=== PATIENT | female | born 1950 | race Caucasian/White ===

== ENCOUNTER → 2021-03-09 09:55 | Outpatient (BNVA) | payer MEDICARE, OTHER, SELFPAY | PROVIDERS: Visit Provider Nurse Practitioner Family | DX: Z20.822 Contact with and (suspected) exposure to COVID-19 (principal) | CPT/HCPCS: 87426; 87635 ==

== ENCOUNTER 2021-03-12 09:57 | Outpatient (CLI) | payer MEDICARE, OTHER, SELFPAY ==
[2021-03-12 10:17] VITALS: BP 163/69; PULSE 60; RESP 20; TEMP 36.8; O2SAT 95; BMI 41.1
[2021-03-12 12:00] VITALS: BP 182/90; PULSE 53; RESP 18; O2SAT 92
[2021-03-12 12:12] VITALS: PULSE 62; RESP 18; TEMP 37
--- NOTE | 2021-03-19 18:43 | PC.SOCIAL ---
10-1, 1500 antibody infusion follow up call: symptoms prior to infusion: fever, chills, cough, cold like symptoms patient reports she is better, still has no appetite but feels she is on the uphill swing of things, cough is better, and no fever.
== END 2021-03-12 09:58 | disposition home or self-care (01) ==
LOC: OPS 10:01
PROVIDERS: Visit Provider Nurse Practitioner Family
DX: U07.1 COVID-19 (principal)
CPT/HCPCS: 96365

== ENCOUNTER 2021-12-28 10:09 | Emergency (ER) | payer MEDICARE, OTHER, SELFPAY ==
[2021-12-28] VITALS (21 sets, daily range): BP systolic 194–269; BP diastolic 88–115; PULSE 56; RESP 20; O2SAT 91–98
--- NOTE | 2021-12-28 11:35 | ED_ITS ---
HPI - Abdominal Pain General: Chief Complaint: Abdominal Pain Stated Complaint: right side/back pain Time Seen by Provider: 12/28/21 11:35 History of Present Illness: Ms. Cameron is a 71-year-old lady without significant past medical history presents to the emergency department due to right flank pain. She notes intermittent history of pain starting without specific known provoking factor approximately 1 week ago. Initially it was just twinges however since this morning it has been constant. She describes severe ache in the right flank and back region. She has associated nausea and vomiting today. She did notice blood in urine about a week ago however it was only trace and has not recurred, she does not continue to have urinary symptoms. Overall course has persisted. She does report similar feeling to kidney stone a number of years ago. No other specific changes in health, exacerbating, or alleviating factors identified. Onset (ago): day(s) Pain Consistency: intermittent Location: R flank Severity: severe Quality: aching Radiation: RUQ Associated Symptoms: Reports hematuria, nausea and vomiting Review of Systems General: Reports: 10 or more systems reviewed and unremarkable except in HPI and below GI: Reports: nausea and vomiting : Reports: hematuria PFSH ED PFSH: Medical History History of nephrolithiasis Surgical History History of appendectomy History of oophorectomy Family History Mother , AT AGE 87 Lung disease Rheumatoid arthritis Cancer LUNG Father , AT AGE 43 Alcohol abuse Heart attack Social History Smoking and tobacco status: never smoked Alcohol intake: never Marital status: Current occupational status: employed Current occupation: [employer] History of recent travel: No Physical Exam Const: COMMON NORMALS: alert GENERAL APPEARANCE: cooperative, well developed and in distress (Uncomfortable appearing due to pain) HENMT: COMMON NORMALS: normocephalic and atraumatic HEAD & SCALP: normocephalic and atraumatic THROAT: posterior oropharynx normal Eye: COMMON NORMALS: conjunctivae normal CONJUNCTIVA: Yes conjunctivae normal SCLERA: sclerae normal Neck/C-Spine: COMMON NORMALS: supple GENERAL: Yes trachea midline Resp: COMMON NORMALS: normal respiratory effort EFFORT & INSPECTION: Yes able to speak in complete sentences Cardio: COMMON NORMALS: regular rate and regular rhythm RATE: regular rate RHYTHM: regular rhythm GI: COMMON NORMALS: Soft to palpation PALPATION: Yes Soft to palpation, Yes Tenderness to palpation present (GI) Details: RUQ and other (Right flank), No Guarding due to palpation present (GI), No Rigid due to palpation and No Rebound tenderness present PERCUSSION: normal to percussion Extremity: GENERAL: Yes normal exam except as noted and No edema Neuro: COMMON NORMALS: moves all extremities SENSORIUM/ORIENTATION: Yes alert and No Orientation impaired Psych: COMMON NORMALS: mental status grossly normal and Normal thought process present THOUGHT PROCESS: Normal thought process present Course ED course: - Patient was seen and evaluated by me at bedside - Patient placed on cardiac monitors, IV access obtained - Initial evaluation notable for Exam as above - Labs and xrays personally interpreted by me - Analgesia and antiemetic given - Labs notable for Metabolic panel without acute electrolyte derangement. leukocytosis, normal hemoglobin. Urinalysis with hematuria. Squamous epithelial contamination present with 5-10 white cells & nitrate positive. - Imaging notable for 5 mm calcification in the proximal ureter likely explain patient's symptoms with moderate right hydroureteronephrosis. - Upon serial reexamination after treatment the patient was improved. - Discussed with urology recommended outpatient follow-up with strict return cautions. Plan to treat WBCs in urine given nitrate positive to err on the side of caution. Patient is nontoxic and not septic. - Based on patient history, evaluation, and testing as interpreted the most likely cause of the patient's condition is kidney stone - The results of ED evaluation were discussed with the patient including prescriptions and/or symptomatic cares (if applicable) including appropriate and responsible use, followup plan, and return precautions. The patient verbalized understanding and felt safe for discharge. - Patient discharged in satisfactory condition. Note: Click bubbles or prepopulated hale in note writing are used for assistance with data collection and billing and are inherently more limited than narrative and other text portions of this note. Please use narrative for additional clinical history and defer to narrative/free test for any case of contradictory information. If information appears in only free text or click bubble it should be considered present or absent as reported. Please contact note commercial lines underwriter for clarifications of clinical information or contradictory information. MDM is a brief summary, contradictory or erroneous seeming information should be clarified and full note should be reviewed. Vital Signs: Vital signs: Vital Signs Pulse Rate 56 L 12/28/21 10:45 Respiratory Rate 20 H 12/28/21 10:45 Blood Pressure 194/88 12/28/21 14:15 Pulse Oximetry 93 12/28/21 14:10 MDM - Abdominal Pain Medical Decision Making 71-year-old female presenting with abdominal pain found to have proximal ureter stone. Patient is nontoxic in appearance without evidence of sepsis. She was improved with treatment of symptoms. Strict return precautions given. Satisfactory for outpatient follow-up with urology. Medical Records I reviewed the patient's medical records. Lab Data I reviewed the patient's lab results. : 12/28/21 11:45 12/28/21 11:45 Labs/Radiology: Radiology Impressions Abdomen/Pelvis CT 12/28/21 11:40 IMPRESSION: 1. Moderate RIGHT hydroureteronephrosis secondary to a 5 mm calcification in the proximal ureter. 2. Additional bilateral nonobstructing renal calculi. 3. Prior appendectomy. 4. Long-term stability lobulated RIGHT adnexal cystic mass which is probably related to the ovary. 5. Prior LEFT oophorectomy. Laboratory Results WBC 14.0 10^3/uL (4.0-10.0) H 12/28/21 11:45 RBC 5.05 10^6/uL (4.1-5.3) 12/28/21 11:45 Hgb 14.6 g/dL (11.5-15.3) 12/28/21 11:45 Hct 44.4 % (37.0-47.0) 12/28/21 11:45 MCV 87.9 fl (81-99) 12/28/21 11:45 MCH 28.9 pg (28.0-34.0) 12/28/21 11:45 MCHC 32.9 g/dL (30.0-36.0) 12/28/21 11:45 RDW 12.9 % (12.1-15.1) 12/28/21 11:45 Plt Count 321 10^3/cmm (130-400) 12/28/21 11:45 MPV 11.4 fL (7.4-10.4) H 12/28/21 11:45 Neut % (Auto) 83.3 % 12/28/21 11:45 Lymph % (Auto) 13.1 % 12/28/21 11:45 [place] % (Auto) 2.1 % 12/28/21 11:45 Eos % (Auto) 0.2 % 12/28/21 11:45 Baso % (Auto) 0.9 % 12/28/21 11:45 Neut # (Auto) 11.66 10^3/uL (1.8-7.7) H 12/28/21 11:45 Lymph # (Auto) 1.8 10^3/uL (0.8-4.8) 12/28/21 11:45 [place] # (Auto) 0.3 10^3/uL (0.2-0.9) 12/28/21 11:45 Eos # (Auto) 0.0 10^3/uL (0.0-0.8) 12/28/21 11:45 Baso # (Auto) 0.1 10^3/uL (0.0-0.1) 12/28/21 11:45 Nucleated RBC % (auto) 0 % 12/28/21 11:45 Nucleated RBCs # 0.0 /100WBC 12/28/21 11:45 Sodium 140 mmol/L (136-145) 12/28/21 11:45 Potassium 3.8 mmol/L (3.5-5.1) 12/28/21 11:45 Chloride 100 mmol/L (98-107) 12/28/21 11:45 Carbon Dioxide 27 mmol/L (22-29) 12/28/21 11:45 Anion Gap 16.8 (5-19) 12/28/21 11:45 BUN 18 mg/dL (8-23) 12/28/21 11:45 Creatinine 0.6 mg/dL (0.5-0.9) 12/28/21 11:45 GFR Calculation 98.8 mL/min (90-130) 12/28/21 11:45 Glucose 173 mg/dL (65-115) H 12/28/21 11:45 Calculated Osmolality 296 mOsm/kg (285-295) H 12/28/21 11:45 Calcium 9.6 mg/dL (8.5-10.5) 12/28/21 11:45 Total Bilirubin 0.5 mg/dL (0.15-1.2) 12/28/21 11:45 AST 12 U/L (0-32) 12/28/21 11:45 ALT 11 U/L (0-33) 12/28/21 11:45 Alkaline Phosphatase 109 IU/L (35-105) H 12/28/21 11:45 Total Protein 8.4 g/dL (6.6-8.7) 12/28/21 11:45 Albumin 4.7 g/dL (3.5-5.2) 12/28/21 11:45 Globulin 3.7 g/dL (1.3-4.6) 12/28/21 11:45 Lipase 17 U/L (13-60) 12/28/21 11:45 Urine Color Leah (Yellow) 12/28/21 12:04 Urine Appearance Hazy (CLEAR) A 12/28/21 12:04 Urine pH 5 (5-7) 12/28/21 12:04 Ur Specific [place] 1.025 (1.005-1.030) 12/28/21 12:04 Urine Protein Neg (Negative) 12/28/21 12:04 Urine Glucose (UA) Norm (Normal) 12/28/21 12:04 Urine Ketones 1+ (Negative) H 12/28/21 12:04 Urine Blood 3+ (Negative) H 12/28/21 12:04 Urine Nitrate Positive (Negative) H 12/28/21 12:04 Urine Bilirubin Neg (Negative) 12/28/21 12:04 Urine Urobilinogen Norm mg/dL (Negative) 12/28/21 12:04 Ur Leukocyte Esterase 1+ (Negative) H 12/28/21 12:04 Urine RBC Too numerous to cnt /hpf (0-2) H 12/28/21 12:04 Urine WBC 5-10 /hpf (0-5) H 12/28/21 12:04 Ur Squamous Epith Cells 5-10 /hpf (0-5) H 12/28/21 12:04 Amorphous Sediment Not Reportable 12/28/21 12:04 Urine Bacteria 3+ /hpf (NONE) H 12/28/21 12:04 Discharge Plan Discharge Patient Disposition: Home Clinical Impression: Ureterolithiasis, Leukocytosis, Pelvic cyst, Bacteriuria Condition: Stable Prescriptions: New oxycodone 5 mg tablet 5 mg PO Q4H PRN (Reason: pain) Qty: 20 0RF ondansetron 4 mg tablet,disintegrating 4 mg PO Q8H PRN (Reason: nausea and vomiting) Qty: 15 0RF Cipro 500 mg tablet 500 mg PO BID Qty: 20 0RF Flomax 0.4 mg capsule 0.4 mg PO DAILY Qty: 14 0RF No Action aspirin 325 mg Tablet 325 mg PO DAILY PRN (Reason: Pain) 0RF ibuprofen 200 mg Tablet 400 mg PO Q6H PRN (Reason: Pain) 0RF Discharge Orders: Discharge ED (Routine); Ordered 12/28/21 Ordered By: Vasile Escalante Discharge Diet: Usual diet Discharge Activity: Increase activity as tolerated Patient Instructions: Urinary Tract Infection in Women (ED), How to Strain Your Urine (ED), Ureteral Stones (ED), Opioid Safety Activity Restrictions/Additional Instructions: Thank you for visiting the emergency department. You were seen and evaluated for abdominal pain. You are found to have a kidney stone which likely explains her symptoms. Additionally you have some bacteria in your urine. I will prescribe oxycodone for pain control as well as Zofran for nausea. I will prescribe Flomax as this has been shown to help increase the likelihood of stone passage without intervention. I will prescribe antibiotics given the tamika teria in your urine. I will message case management and you should be contacted for follow-up with Dr. Choudhary. Please follow-up with your primary care provider. Your blood pressure was noted to be elevated, I recommend keeping track of blood pressure and keeping a log at home to follow-up with your primary care provider regarding. Please return to the emergency department for uncontrolled pain, inability to tolerate p.o. intake, fevers, overall worsening, or anything else that you are concerned about a feel needs emergency department evaluation. Stand Alone Forms: Work/School Release Coding Level of Care Code ED Gill Tender for Bill Fwmanasa Exam Comprehensive
--- NOTE | 2021-12-28 11:40 | CT_ITS ---
WS: [id number] CT ABDOMEN AND PELVIS NONCONTRAST HISTORY: R flank pain, hematuria TECHNIQUE: Imaging performed through the abdomen and pelvis. Coronal and sagittal reformats are submi tted. All CT scans at [facility] use at least one of these dose optimization techniques: auto mated exposure control; mA and/or kV adjustment per patient size (includes targeted exams where dose is matched to clinical indication); or iterative reconstruction. DLP: 1201.56 mGy.cm COMPARISON: 11/01/2013 Lower thorax: Motion artifact at the lung bases. Mild cardiomegaly. Small hiatal hernia. Liver: Moderate hepatic enlargement with diffuse hepatic steatosis. No bile duct dilatation. Benign c alcification near the falciform ligament. Gallbladder: Normal gallbladder. Pancreas: Normal size and attenuation. Normal pancreatic duct. No pancreatitis or mass. Spleen: Normal. Adjacent splenule. Adrenal glands: Normal. No mass. Right kidney: Moderate perinephric stranding with mild renal enlargement. Moderate hydronephrosis sec ondary to a ureteral calcification measuring 5 mm in the proximal ureter near the L4 vertebral body. The ureter distally is normal caliber to the bladder. Additional several nonobstructing calcification s measuring 2 to 3 mm. Left kidney: Nonobstructing 2 to 3 mm calcifications. Aorta: Normal abdominal aorta, no aneurysm or atherosclerosis. No free fluid, intraperitoneal air or significant lymphadenopathy. GI tract: Normal distended stomach. No small bowel obstruction. The appendix is been removed. Abdominal wall: Marked thinning of the abdominal wall musculature. There is a small central umbilical hernia containing fat only. Marked atrophy of the RIGHT rectus abdominis muscle. Pelvis: Well-distended urinary bladder. Prior LEFT oophorectomy. Uterus is midline. Cystic mass in th e RIGHT adnexa is reidentified. Similar in appearance to 11/01/2013 with only minimal increase in size . Several lobulated cyst with the largest measuring 3.7 x 3.8 cm. Very stable since 2013. Osseous structures: Unremarkable. CT/CT kidney stone [id number] IMPRESSION: 1. Moderate RIGHT hydroureteronephrosis secondary to a 5 mm calcification in t he proximal ureter. 2. Additional bilateral nonobstructing renal calculi. 3. Prior appendectomy. 4. Long-term stability lobulated RIGHT adnexal cystic mass which is probably r elated to the ovary. 5. Prior LEFT oophorectomy.
[2021-12-28 11:50] LABS: Basophils # 0.1 10^3/uL (0.0-0.1); Basophils % 0.9 %; Eosinophils % 0.2 %; Hematocrit 44.4 % (37.0-47.0); Hemoglobin 14.6 g/dL (11.5-15.3); Lymphocytes # 1.8 10^3/uL (0.8-4.8); Lymphocytes % 13.1 %; Mean Corpuscular HGB Conc 32.9 g/dL (30.0-36.0); Mean Corpuscular Hemoglobin 28.9 pg (28.0-34.0); Mean Corpuscular Volume 87.9 fl (81-99); Mean Platelet Volume 11.4 fL (7.4-10.4); Monocytes # 0.3 10^3/uL (0.2-0.9); Monocytes % 2.1 %; Neutrophils # 11.66 10^3/uL (1.8-7.7); Neutrophils % 83.3 %; Nucleated Red Blood Cells % 0 %; Platelet Count 321 10^3/cmm (130-400); Red Blood Count 5.05 10^6/uL (4.1-5.3); Red Cell Distribution Width 12.9 % (12.1-15.1)
[2021-12-28] MEDS: acetaminophen 1,000 MG/100 ML PIGGYBACK 400 MG IV (11:56)
[2021-12-28] MEDS: ondansetron 2 mg/ML SDV 2 mL 4 MG IVP ×2 (11:58→14:08)
[2021-12-28 12:17] LABS: Alanine Aminotransferase 11 U/L (0-33); Albumin Level 4.7 g/dL (3.5-5.2); Alkaline Phosphatase 109 IU/L (35-105); Anion Gap 16.8 (5-19); Aspartate Amino Transferase 12 U/L (0-32); Blood Urea Nitrogen 18 mg/dL (8-23); Calcium 9.6 mg/dL (8.5-10.5); Carbon Dioxide 27 mmol/L (22-29); Chloride 100 mmol/L (98-107); Globulin 3.7 g/dL (1.3-4.6); Glomerular Filtration Rate 98.8 mL/min (90-130); Glucose 173 mg/dL (65-115); Lipase 17 U/L (13-60); Osmolality Calculated 296 mOsm/kg (285-295); Potassium 3.8 mmol/L (3.5-5.1); Sodium 140 mmol/L (136-145); Total Bilirubin 0.5 mg/dL (0.15-1.2); Total Protein 8.4 g/dL (6.6-8.7)
[2021-12-28 12:26] LABS: Add Urine Microscopic? YES; Bilirubin Urine Neg (Negative); Blood Urine 3+ (Negative); Glucose Urine UA Norm (Normal); Ketones Urine 1+ (Negative); Leukocyte Esterase Urine 1+ (Negative); Nitrate Urine Positive (Negative); Protein Urine Neg (Negative); Specific Gravity, Urine 1.025 (1.005-1.030); Urine Appearance Hazy (CLEAR); Urine Color Amber (Yellow); Urobilinogen Urine Norm (Negative); pH Urine 5 (5-7)
[2021-12-28 12:27] LABS: Add Urine Culture? Yes; Bacteria Urine 3+ /hpf; RBC Urine TOO NUMEROUS TO CNT /hpf (0-2)
--- NOTE | 2021-12-28 12:46 | PC.NURSE ---
NOTIFIED DR. WORLEY OF BP OF 269/105 HE VERBALIZED UNDERSTANDING AND STATED HE WOULD HAVE ORDERS TO FOLLOW.
[2021-12-28] MEDS: tamsulosin 0.4 mg Capsule PO (12:57)
[2021-12-28] MEDS: ketorolac 30 mg/mL INJ 15 MG IVP (12:57)
[2021-12-28] MEDS: hyDRALAzine 20 mg/mL INJ 1 mL 10 MG IVP (12:58)
--- NOTE | 2021-12-28 14:15 | PC.NURSE ---
PT BP IS 194/[address] WORLEY VERBALIZED UNDERSTANDING VO TO CONTINUE WITH DC.
--- NOTE | 2021-12-31 09:13 | DCPLANNER ---
Addendum entered by Violetta Wilson 01/08/22 15:05: Patient had a follow up appointment scheduled for 01.01.[address] Choudhary at urology - patient did attend appointment. Original Note: manager marketing sales had message to schedule a follow up appointment for patient with urology. manager marketing sales sent patients information to the front office staff at urology. Patients information will be printed and reviewed. Clinic will call patient with appointment information.
== END 2021-12-28 14:21 | disposition home or self-care (01) ==
PROVIDERS: Emergency Provider Emergency Medicine
DX: N20.1 Calculus of ureter (principal); D72.829 Elevated white blood cell count, unspecified; N94.89 Other specified conditions associated with female genital organs and menstrual cycle; R82.71 Bacteriuria; Z79.82 Long term (current) use of aspirin; Z87.442 Personal history of urinary calculi
CPT/HCPCS: 74176; 80053; 81001; 83690; 85025; 87077; 87086; 87186; 96365; 96375; 96376; 99285; J0360; J1885; J2405

== ENCOUNTER 2022-01-01 12:59 | Outpatient (CLI) | payer MEDICARE, OTHER, SELFPAY ==
--- NOTE | 2022-01-01 13:00 | XR_ITS ---
WS: [id number] XR KUB [id number] REASON FOR EXAM: STONES FINDINGS: 3 mm calculus overlying the mid to lower portion of the right kidney congruent with the CT scan of . The small calculi in the left kidney on the previous CT scan are not readily identified on t he plain films. The mid right ureteral calculus demonstrated on the previous CT is not identified in the abdomen or p juno on the current exam. No other significant abdominal or pelvic findings. XR/XR KUB [id number] IMPRESSION: Right renal calculus. No other urinary tract calculi are identified.
== END 2022-01-01 13:00 | disposition home or self-care (01) ==
PROVIDERS: Visit Provider Urology
DX: N20.1 Calculus of ureter (principal)
CPT/HCPCS: G0463; 74018; 99203

== ENCOUNTER 2022-01-09 09:54 | Outpatient (CLI) | payer MEDICARE, OTHER, SELFPAY ==
--- NOTE | 2022-01-09 09:45 | XR_ITS ---
WS: [id number] Exam: XR KUB [id number] Date/Time of Exam: 01/09/2022 10:23 AM Reason For Exam: URETEROLITHIASIS Comparison 01/01/2022. No bowel obstruction or free air. No sign of organ enlargement. Surgical clips in the right lower tesha drant. There may be small calcifications superimposing the right kidney. Degenerative changes and spo ndylosis of the lumbar spine. XR/XR KUB [id number] IMPRESSION: 1. No acute abdominal finding. 2. There may be tiny calcifications superimposing the right kidney versus debri s in the large bowel.
== END 2022-01-09 09:55 | disposition home or self-care (01) ==
PROVIDERS: Visit Provider Urology
DX: N20.1 Calculus of ureter (principal); N30.00 Acute cystitis without hematuria
CPT/HCPCS: 74018; 81003; 99213

== ENCOUNTER 2022-01-22 09:54 | Outpatient (CLI) | payer MEDICARE, OTHER, SELFPAY ==
--- NOTE | 2022-01-22 10:11 | XRR_ITS ---
PROCEDURE INFORMATION: Exam: XR Abdomen Exam date and time: 01/22/2022 10:12 AM Age: 72 years old Clinical indication: Condition or disease; Kidney or ureter condition; Calculus (stone) in kidney; Prior surgery; Surgery type: Ovary appendectomy; Patient HX: Kidney stone and infected kidney on RT side. Follow up; Additional info: Ureterolithiasis, chadb @ [facility] on 01/22/22 @ 9:45. Appt to follow TECHNIQUE: Imaging protocol: Radiologic exam of the abdomen. Views: Frontal supine view of the abdomen. 1 View. COMPARISON: CR XR KUB [id number] 01/09/2022 10:22 AM FINDINGS: Gastrointestinal tract: There again may be punctate calcific densities projecting over the right kidney versus material within the colon. Bones/joints: Unremarkable. Soft tissues: Surgical material in the right lower quadrant. XR/XR KUB [id number] IMPRESSION: Query nonobstructing tiny right renal calculi versus densities in the colon, similar in appearance to prior.
== END 2022-01-22 09:55 | disposition home or self-care (01) ==
LOC: RAD 09:57
PROVIDERS: Visit Provider Urology
DX: N20.1 Calculus of ureter (principal); N30.00 Acute cystitis without hematuria
CPT/HCPCS: 74018; 81003; 99213

== ENCOUNTER 2022-07-30 09:00 | Outpatient (CLI) | payer MEDICARE, OTHER, SELFPAY ==
--- NOTE | 2022-07-30 09:12 | XRR_ITS ---
PROCEDURE INFORMATION: Exam: XR Abdomen Exam date and time: 07/30/2022 9:16 AM Age: 72 years old Clinical indication: Condition or disease; Kidney or ureter condition; Calculus (stone) in kidney; Prior surgery; Surgery type: Ovary, appy; Additional info: Renal stone, kub @ [facility] 07/30/22 @ 0900 appointment to follow TECHNIQUE: Imaging protocol: Radiologic exam of the abdomen. Views: Frontal supine view of the abdomen. 1 View. COMPARISON: CR XR KUB [id number] 01/22/2022 10:12 AM FINDINGS: Gastrointestinal tract: Bowel gas pattern is unremarkable. No sign of obstruction. Organs: No visible renal or ureteral stones. Bones/joints: There is moderate degenerative disease in the lumbar spine. XR/XR KUB [id number] IMPRESSION: No visible renal or ureteral stones.
== END 2022-07-30 09:01 | disposition home or self-care (01) ==
PROVIDERS: Visit Provider Urology
DX: N20.1 Calculus of ureter (principal)
CPT/HCPCS: 74018; 81003; 99213

== ENCOUNTER 2022-10-14 11:50 | Inpatient (IN) | payer MEDICARE, OTHER, SELFPAY ==
[2022-10-14] VITALS (21 sets, daily range): BP systolic 150–182; BP diastolic 76–123; PULSE 79–148; RESP 11–27; TEMP 36.3–36.9; O2SAT 91–97; BMI 44.8
--- NOTE | 2022-10-14 12:09 | ED_ITS ---
HPI - Arrhythmia/Palpitations General: Chief Complaint: Arrhythmia/Palpitations Stated Complaint: AFIB Time Seen by Provider: 10/14/22 12:08 Source: patient Mode of arrival: ambulatory History of Present Illness: 72-year-old female presents emergency room complaining of rapid heart rate intermittently with increasing leg swelling easy fatigue and shortness of breath with exertion for the last approximately 10 days has not been constant but intermittently she has very rapid heart rate reports daily. She denies vomiting or diarrhea but has been very nauseous. No known coronary disease. MD complaint: rapid heart beat and heart racing Onset (ago): day(s) (10) Duration: intermittent Severity: moderate Associated symptoms: Deny anxiety, cough, diaphoresis, muscle cramps, nausea, paresthesias, pre-syncope, sense of impending doom, short of breath, syncope or vomiting Review of Systems Const: Denies: fever(s), chills, fatigue, malaise or diaphoresis ENMT: Denies: throat pain, ear or mastoid pain, nasal discharge or nasal congestion Card: Reports: palpitations, irregular heart rhythm, edema and swelling of feet/ankles; Denies: chest pain, syncope or pre-syncope Resp: Reports: dyspnea; Denies: productive cough or non-productive cough GI: Denies: abdominal pain, nausea or vomiting : Denies: flank pain, difficulty voiding, dysuria, urinary frequency or urinary urgency Musc: Denies: muscle cramps Skin/Breast: Denies: rash or pruritus Psych: Denies: anxiety PFSH ED PFSH: Medical History History of nephrolithiasis Urolithiasis Surgical History History of appendectomy History of oophorectomy Family History Mother , AT AGE 87 Lung disease Rheumatoid arthritis Cancer LUNG Father , AT AGE 43 Alcohol abuse Heart attack Social History Smoking and tobacco status: never smoked Alcohol intake: never Marital status: Current occupational status: employed Current occupation: [employer] Physical Exam Const: GENERAL APPEARANCE: cooperative and comfortable ORIENTATION/CONSCIOUSNESS: Yes awake, Yes oriented to person, Yes oriented to place and Yes oriented to time HENMT: COMMON NORMALS: normocephalic, atraumatic and hearing grossly normal bilaterally HEAD & SCALP: normocephalic and atraumatic Resp: COMMON NORMALS: normal respiratory effort, No retractions, No use of accessory muscles and clear to auscultation bilaterally AUSCULTATION: clear to auscultation bilaterally Cardio: RATE: tachycardic RHYTHM: abnormal rhythm irregularly irregular GI: COMMON NORMALS: Soft to palpation and No hepatosplenomegaly present AUSCULTATION: Yes normoactive bowel sounds PALPATION: Yes Soft to palpation, No Tenderness to palpation present (GI), No Guarding due to palpation present (GI) and Yes No hepatosplenomegaly present Extremity: COMMON NORMALS: normal to inspection, capillary refill normal, no clubbing, cyanosis or edema, no calf tenderness and no pedal edema Neuro: SENSORIUM/ORIENTATION: Yes oriented to person, Yes oriented to place and Yes oriented to time Skin: COMMON NORMALS: no rashes or lesions noted GENERAL SKIN EXAM: no rashes or lesions noted Course Vital Signs: Vital signs: Vital Signs Temperature 98.1 F 10/14/22 11:58 Pulse Rate 148 H 10/14/22 11:58 Respiratory Rate 24 H 10/14/22 11:58 Blood Pressure 166/118 10/14/22 11:58 Pulse Oximetry 95 10/14/22 11:58 Oxygen Delivery Me thod Room Air 10/14/22 11:58 MDM - Arrhythmia/Palpitations Medical Decision Making New onset atrial fibrillation with rapid ventricular response with congestive heart failure. We will admit discussed the hospitalist orders written discussed with the patient as well. Chest x-ray read as mild pneumonia prophylactic antibiotic started White count was slightly elevated. Medical Records I reviewed the patient's medical records. Lab Data I reviewed the patient's lab results. 10/14/22 13:15 10/14/22 13:15 Radiology Impressions Chest X-Ray 10/14/22 12:10 IMPRESSION: Cardiomegaly with faint left lower lobe infiltrate suspicious for pneumonia. Laboratory Results WBC 11.0 10^3/uL (4.0-10.0) H 10/14/22 13:15 RBC 4.79 10^6/uL (4.1-5.3) 10/14/22 13:15 Hgb 13.9 g/dL (11.5-15.3) 10/14/22 13:15 Hct 44.2 % (37.0-47.0) 10/14/22 13:15 MCV 92.3 fl (81-99) 10/14/22 13:15 MCH 29.0 pg (28.0-34.0) 10/14/22 13:15 MCHC 31.4 g/dL (30.0-36.0) 10/14/22 13:15 RDW 13.9 % (12.1-15.1) 10/14/22 13:15 Plt Count 296 10^3/cmm (130-400) 10/14/22 13:15 MPV 11.9 fL (7.4-10.4) H 10/14/22 13:15 Neut % (Auto) 77.9 % 10/14/22 13:15 Lymph % (Auto) 16.4 % 10/14/22 13:15 [place] % (Auto) 3.4 % 10/14/22 13:15 Eos % (Auto) 1.1 % 10/14/22 13:15 Baso % (Auto) 0.9 % 10/14/22 13:15 Neut # (Auto) 8.58 10^3/uL (1.8-7.7) H 10/14/22 13:15 Lymph # (Auto) 1.8 10^3/uL (0.8-4.8) 10/14/22 13:15 [place] # (Auto) 0.4 10^3/uL (0.2-0.9) 10/14/22 13:15 Eos # (Auto) 0.1 10^3/uL (0.0-0.8) 10/14/22 13:15 Baso # (Auto) 0.1 10^3/uL (0.0-0.1) 10/14/22 13:15 Nucleated RBC % (auto) 0 % 10/14/22 13:15 Nucleated RBCs # 0.0 /100WBC 10/14/22 13:15 Sodium 138 mmol/L (136-145) 10/14/22 13:15 Potassium 4.3 mmol/L (3.5-5.1) 10/14/22 13:15 Chloride 101 mmol/L (98-107) 10/14/22 13:15 Carbon Dioxide 25 mmol/L (22-29) 10/14/22 13:15 Anion Gap 16.3 (5-19) 10/14/22 13:15 BUN 10 mg/dL (8-23) 10/14/22 13:15 Creatinine 0.5 mg/dL (0.5-0.9) 10/14/22 13:15 GFR Calculation Not Reportable 10/14/22 13:15 Glucose 122 mg/dL (65-115) H 10/14/22 13:15 Calculated Osmolality 286 mOsm/kg (285-295) 10/14/22 13:15 Calcium 9.1 mg/dL (8.5-10.5) 10/14/22 13:15 Total Bilirubin 0.9 mg/dL (0.15-1.2) 10/14/22 13:15 AST 12 U/L (0-32) 10/14/22 13:15 ALT 13 U/L (0-33) 10/14/22 13:15 Alkaline Phosphatase 92 U/L (35-105) 10/14/22 13:15 Troponin T Baseline 8 ng/L (0-10) 10/14/22 13:15 Troponin T 120 Minute 8.26 ng/L (0-10) 10/14/22 15:20 NT-Pro-B Natriuret Pep 1272 pg/mL (0-125) H 10/14/22 13:15 Total Protein 7.5 g/dL (6.6-8.7) 10/14/22 13:15 Albumin 4.3 g/dL (3.5-5.2) 10/14/22 13:15 Globulin 3.2 g/dL (1.3-4.6) 10/14/22 13:15 TSH 1.91 uIU/mL (0.27-4.20) 10/14/22 13:15 Urine Color Straw (Yellow) 10/14/22 13:00 Urine Appearance Clear (CLEAR) 10/14/22 13:00 Urine pH 8 (5-7) H 10/14/22 13:00 Ur Specific [place] 1.005 (1.005-1.030) 10/14/22 13:00 Urine Protein Neg (Negative) 10/14/22 13:00 Urine Glucose (UA) Norm (Normal) 10/14/22 13:00 Urine Ketones Negative (Negative) 10/14/22 13:00 Urine Blood Neg (Negative) 10/14/22 13:00 Urine Nitrate Negative (Negative) 10/14/22 13:00 Urine Bilirubin Neg (Negative) 10/14/22 13:00 Prot Sulfosalicylic Acd Negative (Negative) 10/14/22 13:00 Urine Urobilinogen Norm mg/dL (Negative) 10/14/22 13:00 Ur Leukocyte Esterase Negative (Negative) 10/14/22 13:00 Discharge Plan Discharge Patient Disposition: Admitted As Inpatient Admit Provider: Jennifer Flynn Clinical Impression: Atrial fibrillation with RVR, Pneumonia Condition: Stable Coding Level of Care Code ED [place] Can Worker for Bill Downey
--- NOTE | 2022-10-14 12:10 | XRR_ITS ---
PROCEDURE INFORMATION: Exam: XR Chest Exam date and time: 10/14/2022 12:16 PM Age: 72 years old Clinical indication: Cough and dyspnea; Additional info: Dyspnea/cough TECHNIQUE: Imaging protocol: Radiologic exam of the chest. Views: 1 view. COMPARISON: CR XR KUB [id number] 07/30/2022 9:16 AM FINDINGS: Lungs: Lung volumes are decreased. Faint indistinct interstitial/ground-glass opacification left lung base suspicious for infiltrate. Remaining lung hale are clear. Pleural spaces: Unremarkable. No pleural effusion. No pneumothorax. Heart/Mediastinum: Heart is moderately enlarged. Bones/joints: Unremarkable for age. XR/XR chest 1V portable [id number] IMPRESSION: Cardiomegaly with faint left lower lobe infiltrate suspicious for pneumonia.
[2022-10-14] MEDS: dilTIAZem 5 mg/mL SDV 5 mL 20 MG IVP (13:11)
[2022-10-14] MEDS: sodium chloride 0.9% 1,000 ML 999 ML IV (13:11)
[2022-10-14] MEDS: dilTIAZem 100 MG in sodium chloride 0.9% (add-van) 100 ML IV (13:12)
[2022-10-14] MEDS: enoxaparin 120 mg/0.8 mL Syringe 110 MG SUBCUT (13:15)
[2022-10-14 13:33] LABS: Basophils # 0.1 10^3/uL (0.0-0.1); Basophils % 0.9 %; Eosinophils # 0.1 10^3/uL (0.0-0.8); Eosinophils % 1.1 %; Hematocrit 44.2 % (37.0-47.0); Hemoglobin 13.9 g/dL (11.5-15.3); Lymphocytes # 1.8 10^3/uL (0.8-4.8); Lymphocytes % 16.4 %; Mean Corpuscular HGB Conc 31.4 g/dL (30.0-36.0); Mean Corpuscular Volume 92.3 fl (81-99); Mean Platelet Volume 11.9 fL (7.4-10.4); Monocytes # 0.4 10^3/uL (0.2-0.9); Monocytes % 3.4 %; Neutrophils # 8.58 10^3/uL (1.8-7.7); Neutrophils % 77.9 %; Nucleated Red Blood Cells % 0 %; Platelet Count 296 10^3/cmm (130-400); Red Blood Count 4.79 10^6/uL (4.1-5.3); Red Cell Distribution Width 13.9 % (12.1-15.1)
[2022-10-14 13:39] LABS: Add Urine Microscopic? NO; Charge for UA Resulting for Rev
--- NOTE | 2022-10-14 13:44 | ECG_ITS ---
[facility] Test Date: 2022-10-14 Pat Name: Satya Cameron Department: Room: Gender: Female Temperature Inspector: : 1950 Requested By: Herbert Massey Order Number: [id number] Cher MD: Dave Estrada M.D. Measurements Intervals [place] Rate: 92 P: 0 GA: 0 QRS: 17 QRSD: 98 T: 60 QT: 344 QTc: 427 Interpretive Statements ATRIAL FIBRILLATION NONSPECIFIC T-WAVE ABNORMALITY ABNORMAL RHYTHM ECG No previous ECG available for comparison Electronically Signed On 10-15-2022 7:03:59 CDT by Dave Estrada M.D. [id number]
[2022-10-14 14:07] LABS: Alanine Aminotransferase 13 U/L (0-33); Albumin Level 4.3 g/dL (3.5-5.2); Alkaline Phosphatase 92 U/L (35-105); Anion Gap 16.3 (5-19); Aspartate Amino Transferase 12 U/L (0-32); Blood Urea Nitrogen 10 mg/dL (8-23); Calcium 9.1 mg/dL (8.5-10.5); Carbon Dioxide 25 mmol/L (22-29); Chloride 101 mmol/L (98-107); Globulin 3.2 g/dL (1.3-4.6); Glucose 122 mg/dL (65-115); NT Pro B Type Natriuretic Pept 1272 pg/mL (0-125); Osmolality Calculated 286 mOsm/kg (285-295); Potassium 4.3 mmol/L (3.5-5.1); Sodium 138 mmol/L (136-145); Thyroid Stimulating Hormone 1.91 uIU/mL (0.27-4.20); Total Bilirubin 0.9 mg/dL (0.15-1.2); Total Protein 7.5 g/dL (6.6-8.7)
[2022-10-14 14:16] LABS: Troponin(5th) Baseline 8 ng/L (0-10)
[2022-10-14 14:29] LABS: Bilirubin Urine Neg (Negative); Blood Urine Neg (Negative); Glucose Urine UA Norm (Normal); Ketones Urine Negative (Negative); Leukocyte Esterase Urine Negative (Negative); Nitrate Urine Negative (Negative); Protein Urine Neg (Negative); Specific Gravity, Urine 1.005 (1.005-1.030); Sulfosalicylic Acid Urine Negative (Negative); Urine Appearance Clear (CLEAR); Urine Color Straw (Yellow); Urobilinogen Urine Norm (Negative); pH Urine 8 (5-7)
[2022-10-14] MEDS: levofloxacin-dextrose 5 % 750 MG/150 ML PREMIX 100 MG IV (15:37)
--- NOTE | 2022-10-14 15:52 | PM.HP ---
Providers/Chief Complaint Admitting Physician: Jennifer Flynn MD Primary Care Provider: None yet established there were agreeable to following up at [facility] Chief Complaint: AFIB History of Present Illness Satya Cameron is a 72 year old female who presented to the emergency room via private vehicle from the clinic in [place] due to a finding of atrial fibrillation with rapid ventricular response at a rate of 145 bpm on EKG today. Patient has no personal history of atrial fibrillation. She does not actually carry any chronic cardiac diagnoses. When specifically asked she does admit to having blood pressures that run high for some time but she has not been on any medications in many many years. Back in the 1980s she had what sounds like probable acute thyroiditis and had issues with her heart rate and blood pressure that were managed with cardiac medications (by description I suspect beta-blockade) for period of time before her thyroid function normalized and she came off of those medicines. Several weeks ago she started noticing intermittent episodes of her heart fluttering. Initially the episodes were short-lived and might be associated with some mild shortness of breath but resolved on their own. For the last 10 to 14 days however her heart rate has been steadily staying irregular. With exertion her heart rate will go up higher and feel more irregular. She has had shortness of breath particularly with exertion and a sensation in the upper part of her stomach that makes her think that she needs to eat, she describes the sensation as jellyfish like . She does not really describe chest pain beyond that. When she eats that sensation in her stomach goes away. 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 She usually works on , Fridays and Saturdays. With the persistent irregular heartbeat she knew she needed to be seen and had planned on being seen at the clinic in [place]. On the day of admission however in addition to the irregular heartbeat, she was complaining of significant itching and rash on her face and neck. She had snuggled an outdoor kitten and believes that she has gotten poison liliane or similar. The itching is intense. No sensation of swelling in her airways. Mrs. Cameron does have issues with chronic lower extremity edema and has frequent urination though no dysuria. She denies any orthopnea or PND. No calf pain. No reports of any bleeding or sores beyond iatrogenic bruising today. While she has no known previous cardiac history, her father suddenly at the age of 43 from a presumed heart attack. Her mother had issues with COPD and heart failure prior to her in later years. Patient's brother is alive without any known chronic medical issues. She has never smoked. No known history of diabetes. BMI 44. She takes ibuprofen at times for aches and pains and fairly regular antidiarrheal (loperamide she believes) but no other chronic medications to date. On presentation to the emergency room initial heart rate in the 140s to 150s. She received a Cardizem bolus and was started on Cardizem drip with improvement in heart rate to 90s. EKG showed atrial fibrillation. She is being placed in the observation for further evaluation and initiation of treatment. Currently feeling okay but knows that she has needed to have something done for a while. Review of Systems General: Reports: Other (ROS as per HPI or as otherwise noted here) Card: Reports: dyspnea on exertion; Denies: syncope Resp: Denies: pain on inspiration or hemoptysis GI: Reports: diarrhea (Chronjc takes loperamide daily) Neuro: Denies: weakness in extremities Medications/Allergies Home Medications Medication Instructions Recorded Confirmed Last Taken Type ibuprofen 200 mg tablet 400 mg PO Q6H PRN Pain 12/28/21 10/14/22 Unknown History clindamycin HCl 300 mg capsule 300 mg PO TID 10/14/22 10/14/22 10/13/22 History loperamide 2 mg tablet 2 - 4 mg PO QID PRN diarrhea 10/14/22 10/14/22 10/13/22 History management Allergies Allergy/AdvReac Type Severity Reaction Status Date / Time Sulfa (Sulfonamide Allergy RASH Verified 10/14/22 10:42 Antibiotics) Additional Medication Information On cllindamycin for a dental infection, only had for 2 days thus far PFSH Acute PFSH: Medical History (Updated 10/14/22 @ 19:43 by Jennifer Flynn MD) 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, takes antidiarrheal regularly History of thyroiditis in , on medication for a while; thyroid function later normalized Urolithiasis right proximal ureteral stone 5mm in 12/2021 (passed with conservative management) along with other stones noted; q2 year KUBs recommended by urology, follows dietary modification for stone risk reduction Surgical History (Updated 10/14/22 @ 19:13 by Jennifer Flynn MD) History of appendectomy History of oophorectomy left History of rectal surgery at age 12 years 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 to difficulty stooling; now with chronic loose stools Family History (Updated 10/14/22 @ 19:16 by Jennifer Flynn MD) Mother , AT AGE 87 Lung disease COPD Rheumatoid arthritis Heart failure Father , AT AGE 43 Alcohol abuse Heart attack presumptive diagnosis as had sudden episode Brother Smoker Social History (Updated 10/14/22 @ 19:16 by Jennifer Flynn MD) Smoking and tobacco status: never smoked Alcohol intake: never Household members: none Marital status: Current occupational status: employed Current occupation: [employer] Pets and animals: Yes Pets & animals: cat(s) Vitals/I&O/Wt Last Vital Signs Temp 98.1 F 10/14/22 11:58 Pulse 148 H 10/14/22 11:58 Resp 24 H 10/14/22 11:58 BP 166/118 10/14/22 11:58 Pulse Ox 95 10/14/22 11:58 O2 Del Method Room Air 10/14/22 11:58 Weight last 48 hrs Weight 114.816 kg Physical Exam Narrative: Patient is awake and alert, looks uncomfortable from itching associated with the erythematous rash on her lower face and neck left side more so than right. Able to provide history. Oriented x4. Other than the macular papular rash is normal cephalic. Some mild injection noted of the sclera. Nasopharynx is clear. Oropharynx with fair dentition. Neck is supple. No lymphadenopathy or thyromegaly appreciated. Lungs are clear to auscultation bilaterally without any rales rhonchi or wheezes noted cardiovascular exam reveals an irregularly irregular rhythm. Jugular venous distention near the angle of the jaw. 2+ pulses. Abdomen is soft, nontender. Extremities are remarkable for 3+ pitting edema bilaterally. No calf tenderness or palpable cords. No oozing is noted. Mild chronic stasis changes with loss of hair noted. Brisk capillary refill. Speech is clear, face symmetric, moves all extremities. Bruising noted to both ACs. Data 10/14/22 13:15 10/14/22 13:15 Other Labs: Radiology Impressions Chest X-Ray 10/14/22 12:10 IMPRESSION: Cardiomegaly with faint left lower lobe infiltrate suspicious for pneumonia. Laboratory Results WBC 11.0 10^3/uL (4.0-10.0) H 10/14/22 13:15 RBC 4.79 10^6/uL (4.1-5.3) 10/14/22 13:15 Hgb 13.9 g/dL (11.5-15.3) 10/14/22 13:15 Hct 44.2 % (37.0-47.0) 10/14/22 13:15 MCV 92.3 fl (81-99) 10/14/22 13:15 MCH 29.0 pg (28.0-34.0) 10/14/22 13:15 MCHC 31.4 g/dL (30.0-36.0) 10/14/22 13:15 RDW 13.9 % (12.1-15.1) 10/14/22 13:15 Plt Count 296 10^3/cmm (130-400) 10/14/22 13:15 MPV 11.9 fL (7.4-10.4) H 10/14/22 13:15 Neut % (Auto) 77.9 % 10/14/22 13:15 Lymph % (Auto) 16.4 % 10/14/22 13:15 [place] % (Auto) 3.4 % 10/14/22 13:15 Eos % (Auto) 1.1 % 10/14/22 13:15 Baso % (Auto) 0.9 % 10/14/22 13:15 Neut # (Auto) 8.58 10^3/uL (1.8-7.7) H 10/14/22 13:15 Lymph # (Auto) 1.8 10^3/uL (0.8-4.8) 10/14/22 13:15 [place] # (Auto) 0.4 10^3/uL (0.2-0.9) 10/14/22 13:15 Eos # (Auto) 0.1 10^3/uL (0.0-0.8) 10/14/22 13:15 Baso # (Auto) 0.1 10^3/uL (0.0-0.1) 10/14/22 13:15 Nucleated RBC % (auto) 0 % 10/14/22 13:15 Nucleated RBCs # 0.0 /100WBC 10/14/22 13:15 Sodium 138 mmol/L (136-145) 10/14/22 13:15 Potassium 4.3 mmol/L (3.5-5.1) 10/14/22 13:15 Chloride 101 mmol/L (98-107) 10/14/22 13:15 Carbon Dioxide 25 mmol/L (22-29) 10/14/22 13:15 Anion Gap 16.3 (5-19) 10/14/22 13:15 BUN 10 mg/dL (8-23) 10/14/22 13:15 Creatinine 0.5 mg/dL (0.5-0.9) 10/14/22 13:15 GFR Calculation Not Reportable 10/14/22 13:15 Glucose 122 mg/dL (65-115) H 10/14/22 13:15 Calculated Osmolality 286 mOsm/kg (285-295) 10/14/22 13:15 Calcium 9.1 mg/dL (8.5-10.5) 10/14/22 13:15 Total Bilirubin 0.9 mg/dL (0.15-1.2) 10/14/22 13:15 AST 12 U/L (0-32) 10/14/22 13:15 ALT 13 U/L (0-33) 10/14/22 13:15 Alkaline Phosphatase 92 U/L (35-105) 10/14/22 13:15 Troponin T Baseline 8 ng/L (0-10) 10/14/22 13:15 NT-Pro-B Natriuret Pep 1272 pg/mL (0-125) H 10/14/22 13:15 Total Protein 7.5 g/dL (6.6-8.7) 10/14/22 13:15 Albumin 4.3 g/dL (3.5-5.2) 10/14/22 13:15 Globulin 3.2 g/dL (1.3-4.6) 10/14/22 13:15 TSH 1.91 uIU/mL (0.27-4.20) 10/14/22 13:15 Urine Color Straw (Yellow) 10/14/22 13:00 Urine Appearance Clear (CLEAR) 10/14/22 13:00 Urine pH 8 (5-7) H 10/14/22 13:00 Ur Specific [place] 1.005 (1.005-1.030) 10/14/22 13:00 Urine Protein Neg (Negative) 10/14/22 13:00 Urine Glucose (UA) Norm (Normal) 10/14/22 13:00 Urine Ketones Negative (Negative) 10/14/22 13:00 Urine Blood Neg (Negative) 10/14/22 13:00 Urine Nitrate Negative (Negative) 10/14/22 13:00 Urine Bilirubin Neg (Negative) 10/14/22 13:00 Prot Sulfosalicylic Acd Negative (Negative) 10/14/22 13:00 Urine Urobilinogen Norm mg/dL (Negative) 10/14/22 13:00 Ur Leukocyte Esterase Negative (Negative) 10/14/22 13:00 Micro: Microbiology 10/14/22 15:03 Blood Culture - Preliminary Blood SPECIMEN COLLECTED 10/14/22 14:03 Blood Culture - Preliminary Blood SPECIMEN COLLECTED A&P Assessment and plan (1) Atrial fibrillation with RVR: New onset, at this point in time at least 10 days continuous and likely intermittent paroxysmal prior to that for a month or so, has achieved rate control with initiation of diltiazem drip. Suspect in part due to uncontrolled undiagnosed hypertension and likely CHF that has also been undiagnosed. Differential further includes acute infection, unidentified coronary artery disease (with respiratory and GI as presenting symptoms), thromboembolic event, electrolyte abnormalities though not apparent in initial work-up, among others. TSH normal at 1.91 Baseline troponin normal at 8 with unremarkable 2-hour delta Initial chest x-ray with lower lobe infiltrate suspicious for pneumonia though without clear pulmonary infection symptoms beyond feeling short of breath lately Known dental infection at presentation, for which she has been on antibiotics x 2 days Normal electrolytes, normal liver function studies, normal renal function at presentation Continue diltiazem via drip, transitioning to oral as able Telemetry monitoring Continue serial cardiac enzymes Check D-dimer, PT and PTT Check lipid panel and A1c for risk stratification Will initiate Eliquis; discussed with patient risk of clot formation with atrial fibrillation and associated risk of stroke as well as risk of bleeding, potential need for monitoring, and cost associated with chronic anticoagulation. Other discussed alternatives to Eliquis if she has difficulty affording. Received treatment dose Lovenox in the emergency room (2) CHF (congestive heart failure): Elevated BNP at admission. Does not have a known diagnosis of CHF but given exam and cardiomegaly noted on imaging, strongly suspected new diagnosis. Elevated BNP could be secondary to atrial fibrillation with rapid ventricular response. Not known to have sleep apnea though lives alone. BMI is elevated. Echocardiogram Lasix IV with oral potassium Carrington catheter for close monitoring of urine output Strict I&O and daily weights, fluid restrict (3) Elevated blood pressure reading without diagnosis of hypertension: Does not carry a formal diagnosis of hypertension though has had some high blood pressure readings over time. Has not been on any medications for hypertension in the outpatient setting since the when she had acute thyroiditis. Presently exacerbated by volume overload. Monitor blood pressure response to diltiazem and lasix before adding additional antihypertensives Will aim for a 25% reduction in blood pressure currently Years ago did not tolerate initiation of antihypertensives well, feeling like a zombie (4) Pneumonia: Left lower lobe infiltrate suspicious for pneumonia present on admission imaging though not describing classic symptoms of pneumonia such as productive cough, fever, malaise and the like. Will empirically cover with antibiotics Follow up pending blood culture Check procalcitonin (5) Contact dermatitis: Possibly from poison liliane, present on admission. With area of involvement relating to where she snuggled with a kitten seems less likely to be an external manifestation of systemic disease at this time. Steroids, IV this evening and start prednisone x 3-5 days in am Calamine lotion or topical benadryl for itching (6) Dental infection: On clindamycin presently for dental infection with plan to get root canal and crown when infection cleared Discussed with patient that she will need to inform dentist/dental surgeon of initiation of anticoagulation for atrial fibrillation Antibiotics for possible pneumonia will cover dental infection presently so have held clindamycin for now - at DC will need to clarify continuation of clinda for dental infection versus new antibiotics depending on clinical course (7) BMI 40.0-44.9, adult: Plan History of kidney stones, other than urinary frequency which I believe is due to volume overload, no complaints to suggest acute urine infection Mild hyperglycemia prior to steroids without a history of diabetes Complaints of upper abdominal discomfort - takes nsaids for pain prn (not regularly) could be a symptom of afib with rvr, anginal equivalent, PUD Chronic diarrhea related to aftereffects from 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 Loperamide as needed for chronic diarrhea though with antibiotic coverage initiated prior to admission and continued during hospital stay, will need to monitor for findings suggestive of stool infection PPI for GI prophylaxis Nadine provides DVT prophylaxis Anticipate discharge home with outpatient follow-up Will need to establish a primary care provider to follow-up with regularly, interested in following up at the clinic in [place] as that is right by where she lives Patient will likely have several new medications at discharge and would benefit from keeping a log of heart rate and blood pressure and how she is tolerating medications to follow-up appointments Supportive care otherwise Full code Attestations Medical Necessity Statement*: Currently anticipate a stay less than two midnights in this patient with new onset atrial fibrillation with rapid ventricular response and new likely diagnosis of CHF and hypertension which will require initiation of medications. Heart rate is controlled on low-dose IV Cardizem drip presently. and High Time for a total of 80 minutes, includes reviewing past or interval history, examining/interviewing patient, placing orders, counseling patient/family/other support (discussed anticipated new medications (BP, rate control, blood thinner, diuretic, etc)), discussing plan of care with staff and documenting encounter Diagnoses Atrial fibrillation with RVR I48.91 CHF (congestive heart failure) I50.9 Elevated blood pressure reading without diagnosis of hypertension R03.0 Pneumonia J18.9 Contact dermatitis L25.9 Dental infection K04.7 BMI 40.0-44.9, adult Z68.41
[2022-10-14 16:08] LABS: Troponin 5 2HR 8.26 ng/L (0-10)
[2022-10-14 16:13] LABS: Troponin 5 2HR Delta 0.26 ABS# (0-10)
--- NOTE | 2022-10-14 16:23 | ECG_ITS ---
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 Measurements Intervals [place] Rate: 98 P: 0 OH: 0 QRS: 15 QRSD: 98 T: 0 QT: 358 QTc: 458 Interpretive Statements ATRIAL FIBRILLATION NONSPECIFIC T-WAVE ABNORMALITY ABNORMAL RHYTHM ECG Compared to ECG 10/14/2022 14:21:50 No significant changes Electronically Signed On 10-16-2022 0:26:56 CDT by Dave Estrada M.D. [id number]
--- NOTE | 2022-10-14 17:58 | PC.NURSE ---
Received patient from ER at 17:10. Patient arrived with Cardizem drip running at 5mg/hr. Patients Blood pressure elevated at 183/110 on right arm, rechecked patients blood pressure on Left arm and it was 168/101, doctor notified.
--- NOTE | 2022-10-14 18:18 | USCV_ITS ---
Satya Cameron Age: 72 Gender: F : 1950 Exam Date: 10/14/2022 21:55 Ordering Phys: Jennifer Flynn MD Technologist: GERMAINE [place] [facility] [place]: new onset atrial fibrillation with RVR and HTN BP: 168 / 101 HR: 101 Rhythm: Atrial fibrillation Technical Quality: Adequate with OPTISON MEASUREMENTS (Male / Female) Normal Values 2D ECHO LV Diastolic Diameter PLAX 4.1 cm 4.2 - 5.9 / 3.9 - 5.3 cm LV Systolic Diameter PLAX 3.5 cm IVS Diastolic Thickness 1.0 cm 0.6 - 1.0 / 0.6 - 0.9 cm IVS Systolic Thickness 1.2 cm LVPW Diastolic Thickness 1.6 cm 0.6 - 1.0 / 0.6 - 0.9 cm LVPW Systolic Thickness 1.7 cm LVOT Diameter 1.9 cm LV Ejection Fraction 2D Teich 31.6 % LV Ejection Fraction MOD 2C 37.1 % LV Ejection Fraction 2C AL 37.7 % LA Diameter 4.8 cm LA Width 5.3 cm LA Height 6.9 cm RA Width 4.1 cm RA Height 4.5 cm Aorta at Sinotubular Diameter 2.8 cm IVC Diameter 2.2 cm M-MODE Aortic Annulus Diameter 2.6 cm LA Ao Ratio MM 1.7 MV E Point Septal Separation 1.6 cm DOPPLER AV Peak Velocity 116.0 cm/s LVOT Peak Velocity 74.0 cm/s AV Area Cont Eq vti 1.7 cm squared AV Area Cont Eq pk 1.8 cm squared MV Area PHT 4.3 cm squared MV E' Velocity 58.5 cm/s Mitral E to MV E' Ratio 12.0 Mitral E to LV E' Lateral Ratio 12.0 Mitral E to LV E' Septal Ratio 12.1 TR Peak Velocity 319.3 cm/s TR Peak Gradient 40.8 mmHg TV Peak E Velocity 75.0 cm/s Right Atrial Pressure 10.0 mmHg Pulmonary Artery Systolic Pressu 50.8 mmHg PV Peak Velocity 104.0 cm/s RV Acceleration Time 0.1 s RV Ejection Time 0.3 s RV AcT/ET 0.2 FINDINGS Left Ventricle Diffuse hypokinesia of the left ventricle with an ejection fraction of 43%. Mildly dilated LV cavity Right Ventricle The right ventricle is normal in size and function. Right Atrium Mildly increased right atrial size. Left Atrium Moderately increased left atrial size. Mitral Valve Mild-moderate mitral valve regurgitation. Aortic Valve No gross abnormalities noted Tricuspid Valve Moderate tricuspid valve regurgitation. Estimated pulmonary artery peak systolic pressure 54 mmHg Pulmonic Valve Pulmonic valve not well visualized. Pericardium Normal pericardium without effusion. Aorta Normal ascending aorta dimension. IVC Dilated IVC with decreased respiratory variation. CONCLUSIONS Diffuse hypokinesia of the left ventricle with an ejection fraction of 43%. Mildly dilated LV cavity. Mildly increased right atrial size. Moderately increased left atrial size. Mild-moderate mitral valve regurgitation. Moderate tricuspid valve regurgitation. Estimated pulmonary artery peak systolic pressure 54 mmHg. (Echo contrast - Optison was used to delineate the endocardium and to estimate the LV ejection fraction) Dr Dave Estrada MD FAC (Electronically Signed) Final Date: 15 Oct 2022 19:04 S
[2022-10-14] MEDS: dilTIAZem 30 mg Tablet PO (19:36)
[2022-10-14] MEDS: pantoprazole DR 40 mg Tablet PO (19:36)
[2022-10-14] MEDS: cefTRIAXone 1,000 MG in sodium chloride 0.9% (plus) 50 ML 100 MG IV (19:36)
[2022-10-14] MEDS: potassium chloride ER 20 mEq Tablet PO (19:36)
[2022-10-14] MEDS: FUROsemide 10 mg/mL SDV 4mL 40 MG IVP (19:38)
[2022-10-14 19:40] LABS: Troponin 5 6HR 9.05 ng/L (0-10)
--- NOTE | 2022-10-14 19:44 | ECG_ITS ---
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 Measurements Intervals [place] Rate: 96 P: 0 VT: 0 QRS: 39 QRSD: 100 T: 33 QT: 345 QTc: 437 Interpretive Statements ATRIAL FIBRILLATION NONSPECIFIC T-WAVE ABNORMALITY ABNORMAL RHYTHM ECG Compared to ECG 10/14/2022 16:23:12 No significant changes Electronically Signed On 10-16-2022 0:27:34 CDT by Dave Estrada M.D. [id number]
[2022-10-14 19:47] LABS: Troponin 5 6HR Delta 1.05 ng/L (0-12)
[2022-10-15] VITALS (8 sets, daily range): BP systolic 123–159; BP diastolic 67–102; PULSE 92–110; RESP 18–21; TEMP 36.9; O2SAT 91–96
[2022-10-15] MEDS: dilTIAZem 30 mg Tablet PO ×4 (01:14→15:51)
[2022-10-15] MEDS: diphenhydrAMINE cream 30 gm 1 APPLIC TOPICAL ×2 (04:15→12:39)
[2022-10-15 04:24] LABS: INR 1.14 (0.8-1.2)
[2022-10-15 04:25] LABS: Partial Thromboplastin Time 31.5 SECONDS (23.9-36.7)
[2022-10-15 04:27] LABS: D Dimer 0.86 ug/mIFEU (0-0.59)
[2022-10-15 04:30] LABS: Anion Gap 18.3 (5-19); Blood Urea Nitrogen 9 mg/dL (8-23); Calcium 8.9 mg/dL (8.5-10.5); Carbon Dioxide 25 mmol/L (22-29); Chloride 100 mmol/L (98-107); Chol HDL Ratio 3.88 mg/dL (0.0-4.40); Cholesterol 225 mg/dL (0-200); Glucose 156 mg/dL (65-115); HDL Cholesterol 58 mg/dL (60-100); LDL Cholesterol Calculated 146 mg/dL (50-129); LDL HDL Ratio 2.52 RATIO (0.00-3.22); Magnesium 2.2 mg/dL (1.7-2.3); Osmolality Calculated 290 mOsm/kg (285-295); Phosphorus 3.2 mg/dL (2.5-4.5); Potassium 4.3 mmol/L (3.5-5.1); Sodium 139 mmol/L (136-145); Triglycerides 106 mg/dL (0-150)
[2022-10-15 04:32] LABS: Procalcitonin 0.03 ng/mL (0-0.5)
[2022-10-15 04:34] LABS: Estmated Average Glucose 131; Hemoglobin A1C 6.2 % (4.0-6.0)
[2022-10-15] MEDS: perflutren protein-a microsphr 0.22 mg/mL SDV 3 mL IV (05:38)
[2022-10-15] MEDS: potassium chloride ER 20 mEq Tablet PO ×2 (06:10→20:19)
[2022-10-15] MEDS: FUROsemide 10 mg/mL SDV 4mL 40 MG IVP (06:11)
[2022-10-15] MEDS: apixaban 5 mg Tablet PO ×2 (08:36→20:18)
[2022-10-15] MEDS: predniSONE 20 mg Tablet 40 MG PO (08:36)
[2022-10-15] MEDS: pantoprazole DR 40 mg Tablet PO (08:36)
[2022-10-15] MEDS: azithromycin 250 mg Tablet 500 MG PO (08:37)
--- NOTE | 2022-10-15 09:22 | PC.CHAP ---
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 [] Patient/Family/Request visit [] Outpatient visit [] Follow-up visit [] Physician referral [] Code/Alert [] Routine visit [] Staff referral [] Actively dying [] Patient sleeping [] Family support [] [] Out of room [] Palliative care [] [] Receiving care in room [] Pre-surgical visit [] Trauma [] Long length of stay [] ICU visit [] Other: Relational/Emotional Strength [] Patient feels connected with others/family/visitors/staff [] Distress [] Loneliness/isolation [] Abandonment Spirituality of Patient [] Person of Marissa [] Attends Mormonism of their Marissa [] Believes in Prayer [] Reads Bible or Congregational materials [x] There are Spiritual issues to be addressed Gis Manager Interventions [] Prayer [] Active listening [] Non-anxious presence [] Spiritual/emotional support [] Crisis/trauma care [] Spiritual counseling [] Bereavement support [] Provided bereavement packet [] Provided Bible/devotional materials [] Provided toy/stuffed animal, coloring book to patient or family member [] Provided Communion [] Anointing/[place] [] Salvation [x] Completed spiritual assessment [] Other: Impact on Illness or Injury [] Angry [] Fearful [] Anxious [] Often cries [] Exhaustion [] Unable to work [] Unable to attend christianity [] Unable to walk/stand [] Unable to read [] Unable to drive [] Unable to eat/drink [] Unable to sleep [] Unable to be with family [] Patient intubated [] Other: Summary Time spent with patient
--- NOTE | 2022-10-15 15:42 | P.PN_ITS ---
Subjective Subjective: Patient is symptomatically better. Cardizem drip is off. Currently heart rate is ranging between 110 to 130 bpm. She is afebrile. Saturating 93% on room air. Lower extremity swelling is improving. Medications: Reviewed: Yes Vitals/I&O/Wt Last Vital Signs Temp 98.5 F 10/15/22 03:54 Pulse 110 H 10/15/22 14:00 Resp 19 H 10/15/22 12:00 BP 123/67 10/15/22 12:00 Pulse Ox 93 10/15/22 12:00 O2 Del Method Room Air 10/15/22 12:00 10/15/22 10/15/22 10/15/22 06:59 14:59 22:59 Intake Total 119.583 / 1269.583 480 / 480 Output Total 2150 / 3550 2100 / 2100 Balance -2030.417 / -2280.417 -1620 / -1620 Weight last 48 hrs Weight 112.689 kg Weight 114.816 kg Physical Exam Narrative: General: No acute distress, AO x3 HEENT: PERRLA, pupils bilaterally equal and reactive, pallors not present Chest: Normal vesicular breath sounds, no added sounds, equal good air entry bilaterally CVS: S1-S2 regular, no murmurs, no tachycardia, no gallops, no rubs Abdomen: Soft, nontender, no organomegaly, bowel sounds present Neuro: No focal deficits, no facial deformity, AO x3, power 5/5 in all limbs Extremities: Pitting edema bilateral lower extremity Urinary Catheter Management: Carrington: Cath Placed During This Visit: yes Reason for Continuing Indwelling Catheter: Accurate Measurement of Urinary Output in Critically Ill Patients Urinary Catheter Date of Insertion: 10/14/22 Urinary Catheter Time of Insertion: 21:00 Data 10/14/22 13:15 10/15/22 03:23 Micro: Microbiology 10/14/22 15:03 Blood Culture - Preliminary Blood NEGATIVE TO DATE 10/14/22 14:03 Blood Culture - Preliminary Blood NEGATIVE TO DATE A&P Assessment and plan (1) Atrial fibrillation with RVR: New onset, at this point in time at least 10 days continuous and likely intermittent paroxysmal prior to that for a month or so. Suspect in part due to uncontrolled undiagnosed hypertension and likely CHF that has also been undiagnosed. TSH normal at 1.91 Baseline troponin normal at 8 with unremarkable 2-hour and 6 hour delta Initial chest x-ray with lower lobe infiltrate suspicious for pneumonia though without clear pulmonary infection symptoms beyond feeling short of breath lately Known dental infection at presentation, for which she has been on antibiotics x 2 days. Currently on CTX and azithromycin for possible PNA which will also suffice for dental infection. Normal electrolytes, normal liver function studies, normal renal function at presentation Cardizem drip has now been titrated off. Increase p.o. Cardizem from 30 mg every 6 hours to 60 mg every 6 hours at heart rate is still ranging between 110 to 130 bpm. Continue telemetry monitoring D-dimer is 0.86 which is age-appropriate Pending 2D echo results Started on Eliquis 5 mg twice daily yesterday (2) CHF (congestive heart failure): Elevated BNP at admission. Does not have a known diagnosis of CHF but given exam and cardiomegaly noted on imaging, strongly suspected new diagnosis. Unable to comment at this time whether this is acute or chronic or systolic or diastolic Echocardiogram pending Lower extremity edema is improving. Change Lasix 40 mg IV every 12 hours to Lasix 60 mg p.o. twice daily and continue to monitor urine output (3) Elevated blood pressure reading without diagnosis of hypertension: Does not carry a formal diagnosis of hypertension though has had some high blood pressure readings over time. Has not been on any medications for hypertension in the outpatient setting since the 1980s when she had acute thyroiditis. (4) Pneumonia: suspected. .on abx as above (5) Contact dermatitis: Possibly from poison liliane, when she got her cat out of the poison liliane (6) Dental infection: CTX and azithromycin will cover (7) BMI 40.0-44.9, adult: Attestations Medical Necessity Statement*: change to inpatient admission , needs cardizem titration, change iv to po lasix Coding Level of Care Code Acute Code for [facility] Fwd Diagnoses Atrial fibrillation with RVR I48.91 CHF (congestive heart failure) I50.9 Elevated blood pressure reading without diagnosis of hypertension R03.0 Pneumonia J18.9 Contact dermatitis L25.9 Dental infection K04.7 BMI 40.0-44.9, adult Z68.41
[2022-10-15] MEDS: FUROsemide 40 mg Tablet 60 MG PO (15:54)
[2022-10-15] MEDS: dilTIAZem 60 mg Tablet PO ×2 (17:43→23:41)
[2022-10-15] MEDS: cefTRIAXone 1,000 MG in sodium chloride 0.9% (plus) 50 ML 100 MG IV (20:19)
[2022-10-16] VITALS (8 sets, daily range): BP systolic 119–183; BP diastolic 71–105; PULSE 65–101; RESP 17–21; TEMP 36.6; O2SAT 93–95
[2022-10-16] MEDS: potassium chloride ER 20 mEq Tablet PO (06:07)
[2022-10-16] MEDS: dilTIAZem 60 mg Tablet PO (06:07)
[2022-10-16] MEDS: apixaban 5 mg Tablet PO (08:06)
[2022-10-16] MEDS: predniSONE 20 mg Tablet 40 MG PO (08:06)
[2022-10-16] MEDS: azithromycin 250 mg Tablet 500 MG PO (08:06)
[2022-10-16] MEDS: pantoprazole DR 40 mg Tablet PO (08:06)
[2022-10-16] MEDS: FUROsemide 40 mg Tablet 60 MG PO (08:07)
--- NOTE | 2022-10-16 10:31 | PC.NURSE ---
Carrington catheter removed. Patient tolerated well.
--- NOTE | 2022-10-16 10:31 | PC.CHAP ---
Pastoral Care Encounter/Spiritual Assessment Type of Contact [x] Declined gas blender visit [] Patient/Family/Request visit [] Outpatient visit [] Follow-up visit [] Physician referral [] Code/Alert [x Routine visit [] Staff referral [] Actively dying [] Patient sleeping [] Family support [] [] Out of room [] Palliative care [] [] Receiving care in room [] Pre-surgical visit [] Trauma [] Long length of stay [] ICU visit [] Other: Relational/Emotional Strength [] Patient feels connected with others/family/visitors/staff [] Distress [] Loneliness/isolation [] Abandonment Spirituality of Patient [] Person of Marissa [] Attends Pentecostalism of their Marissa [] Believes in Prayer [] Reads Bible or Rastafarian materials [] There are Spiritual issues to be addressed Tracing Lathe Set Up Operator Interventions [] Prayer [] Active listening [] Non-anxious presence [] Spiritual/emotional support [] Crisis/trauma care [] Spiritual counseling [] Bereavement support [] Provided bereavement packet [] Provided Bible/devotional materials [] Provided toy/stuffed animal, coloring book to patient or family member [] Provided Communion [] Anointing/[place] [] Salvation [] Completed spiritual assessment [] Other: Impact on Illness or Injury [] Angry [] Fearful [] Anxious [] Often cries [] Exhaustion [] Unable to work [] Unable to attend hinduism [] Unable to walk/stand [] Unable to read [] Unable to drive [] Unable to eat/drink [] Unable to sleep [] Unable to be with family [] Patient intubated [] Other: Summary Time spent with patient
[2022-10-16] MEDS: dilTIAZem ER (24HR) 120 mg Capsule PO (14:23)
--- NOTE | 2022-10-16 23:59 | PM.DCS ---
Discharge Providers Date of Admission: 10/15/22 15:58 Date of Discharge: October 16, 2022 Attending Provider at Admission: Jennifer Flynn MD Attending Provider at Discharge: Naa Lara MD Primary Care Provider: NANCY Portillo Diagnoses at Discharge Discharge Diagnosis (1) Atrial fibrillation with RVR: Status: Acute (2) CHF (congestive heart failure): Status: Acute (3) Elevated blood pressure reading without diagnosis of hypertension: Status: Acute (4) Pneumonia: Status: Acute (5) Contact dermatitis: Status: Acute (6) Dental infection: Status: Acute (7) BMI 40.0-44.9, adult: Status: Acute Reason for Visit Reason for Visit: AFIB Hospital Course Hospital Course Satya Cameron is a 72 year old female who presented to the emergency room via private vehicle from the clinic in [place] due to a finding of atrial fibrillation with rapid ventricular response at a rate of 145 bpm on EKG. Patient has no personal history of atrial fibrillation.? She does not actually carry any chronic cardiac diagnoses.? When specifically asked she does admit to having blood pressures that run high for some time but she has not been on any medications in many many years. She has achieved rate control with initiation of diltiazem drip and therefater being transitioned to po cardizem. Her HR at time of discharge is between 60-90 bpm, continues to be in A fib. She was also started on a/c with Eliquis 5mg BID. She denies any chest pain. EKG did not show any acute ST-T wave changes. Trop series 8 ---> 8.26---> 9.05, no significant delta. Echocardiogram showed diffuse hypokinesia of the left ventricle with an ejection ?fraction of 43%.? Mildly dilated LV cavity. Outpatient follow up has been arranged with cardiology on 10/24/22. For her dental infection and suspicion for LLL infiltrate she was precribed Augmentin. Physical Exam Narrative: General: No acute distress, AO x3 HEENT: PERRLA, pupils bilaterally equal and reactive, pallors not present Chest: Normal vesicular breath sounds, no added sounds, equal good air entry bilaterally CVS: S1-S2 regular, no murmurs, no tachycardia, no gallops, no rubs Abdomen: Soft, nontender, no organomegaly, bowel sounds present Neuro: No focal deficits, no facial deformity, AO x3, power 5/5 in all limbs Urinary Catheter Management: Carrington: Cath Placed During This Visit: yes, but has since been removed by the nurse Reason for Continuing Indwelling Catheter: Accurate Measurement of Urinary Output in Critically Ill Patients Urinary Catheter Date of Insertion: 10/14/22 Urinary Catheter Time of Insertion: 21:00 Date Urinary Catheter Removed: 10/16/22 Time Urinary Catheter Discontinued: 10:10 Discharge Data Studies Completed and Pending Completed Studies During Hospitalization Category Date Time Status XR chest 1V portable [id number] Stat Exams 10/14/22 12:10 Completed CV. echo wo/w contrast [id number] Routine Ultrasound 10/14/22 18:18 Completed Pending at discharge Category Date Time Status Blood Culture Stat Lab 10/14/22 15:03 Results Radiology Impressions Chest X-Ray 10/14/22 12:10 IMPRESSION: Cardiomegaly with faint left lower lobe infiltrate suspicious for pneumonia. Laboratory Results WBC 11.0 10^3/uL (4.0-10.0) H 10/14/22 13:15 RBC 4.79 10^6/uL (4.1-5.3) 10/14/22 13:15 Hgb 13.9 g/dL (11.5-15.3) 10/14/22 13:15 Hct 44.2 % (37.0-47.0) 10/14/22 13:15 MCV 92.3 fl (81-99) 10/14/22 13:15 MCH 29.0 pg (28.0-34.0) 10/14/22 13:15 MCHC 31.4 g/dL (30.0-36.0) 10/14/22 13:15 RDW 13.9 % (12.1-15.1) 10/14/22 13:15 Plt Count 296 10^3/cmm (130-400) 10/14/22 13:15 MPV 11.9 fL (7.4-10.4) H 10/14/22 13:15 Neut % (Auto) 77.9 % 10/14/22 13:15 Lymph % (Auto) 16.4 % 10/14/22 13:15 [place] % (Auto) 3.4 % 10/14/22 13:15 Eos % (Auto) 1.1 % 10/14/22 13:15 Baso % (Auto) 0.9 % 10/14/22 13:15 Neut # (Auto) 8.58 10^3/uL (1.8-7.7) H 10/14/22 13:15 Lymph # (Auto) 1.8 10^3/uL (0.8-4.8) 10/14/22 13:15 [place] # (Auto) 0.4 10^3/uL (0.2-0.9) 10/14/22 13:15 Eos # (Auto) 0.1 10^3/uL (0.0-0.8) 10/14/22 13:15 Baso # (Auto) 0.1 10^3/uL (0.0-0.1) 10/14/22 13:15 Nucleated RBC % (auto) 0 % 10/14/22 13:15 Nucleated RBCs # 0.0 /100WBC 10/14/22 13:15 PT 15.00 SECONDS (12.1-14.9) H 10/15/22 03:23 INR 1.14 (0.8-1.2) 10/15/22 03:23 APTT 31.5 SECONDS (23.9-36.7) 10/15/22 03:23 D-Dimer 0.86 ug/mIFEU (0-0.59) H 10/15/22 03:23 Sodium 139 mmol/L (136-145) 10/15/22 03:23 Potassium 4.3 mmol/L (3.5-5.1) 10/15/22 03:23 Chloride 100 mmol/L (98-107) 10/15/22 03:23 Carbon Dioxide 25 mmol/L (22-29) 10/15/22 03:23 Anion Gap 18.3 (5-19) 10/15/22 03:23 BUN 9 mg/dL (8-23) 10/15/22 03:23 Creatinine 0.4 mg/dL (0.5-0.9) L 10/15/22 03:23 GFR Calculation Not Reportable 10/15/22 03:23 Glucose 156 mg/dL (65-115) H 10/15/22 03:23 Estimat Average Glucose 131 10/15/22 03:23 Hemoglobin A1c 6.2 % (4.0-6.0) H 10/15/22 03:23 Calculated Osmolality 290 mOsm/kg (285-295) 10/15/22 03:23 Calcium 8.9 mg/dL (8.5-10.5) 10/15/22 03:23 Phosphorus 3.2 mg/dL (2.5-4.5) 10/15/22 03:23 Magnesium 2.2 mg/dL (1.7-2.3) 10/15/22 03:23 Total Bilirubin 0.9 mg/dL (0.15-1.2) 10/14/22 13:15 AST 12 U/L (0-32) 10/14/22 13:15 ALT 13 U/L (0-33) 10/14/22 13:15 Alkaline Phosphatase 92 U/L (35-105) 10/14/22 13:15 Troponin T Baseline 8 ng/L (0-10) 10/14/22 13:15 Troponin T 120 Minute 8.26 ng/L (0-10) 10/14/22 15:20 Delta Troponin T 0.26 ABS# (0-10) 10/14/22 15:20 Troponin T Hi Sens 6Hr 9.05 ng/L (0-10) 10/14/22 19:15 Troponin T Hi Sens 6Hr Delta 1.05 ng/L (0-12) 10/14/22 19:15 NT-Pro-B Natriuret Pep 1272 pg/mL (0-125) H 10/14/22 13:15 Total Protein 7.5 g/dL (6.6-8.7) 10/14/22 13:15 Albumin 4.3 g/dL (3.5-5.2) 10/14/22 13:15 Globulin 3.2 g/dL (1.3-4.6) 10/14/22 13:15 Triglycerides 106 mg/dL (0-150) 10/15/22 03:23 Cholesterol 225 mg/dL (0-200) H 10/15/22 03:23 LDL Cholesterol, Calc 146 mg/dL (50-129) H 10/15/22 03: HDL Cholesterol 58 mg/dL (60-100) L 10/15/22 03:23 LDL/HDL Ratio 2.52 RATIO (0.00-3.22) 10/15/22 03:23 Cholesterol/HDL Ratio 3.88 mg/dL (0.0-4.40) 10/15/22 03:23 Procalcitonin 0.03 ng/mL (0-0.5) 10/15/22 03:23 TSH 1.91 uIU/mL (0.27-4.20) 10/14/22 13:15 Urine Color Straw (Yellow) 10/14/22 13:00 Urine Appearance Clear (CLEAR) 10/14/22 13:00 Urine pH 8 (5-7) H 10/14/22 13:00 Ur Specific [place] 1.005 (1.005-1.030) 10/14/22 13:00 Urine Protein Neg (Negative) 10/14/22 13:00 Urine Glucose (UA) Norm (Normal) 10/14/22 13:00 Urine Ketones Negative (Negative) 10/14/22 13:00 Urine Blood Neg (Negative) 10/14/22 13:00 Urine Nitrate Negative (Negative) 10/14/22 13:00 Urine Bilirubin Neg (Negative) 10/14/22 13:00 Prot Sulfosalicylic Acd Negative (Negative) 10/14/22 13:00 Urine Urobilinogen Norm mg/dL (Negative) 10/14/22 13:00 Ur Leukocyte Esterase Negative (Negative) 10/14/22 13:00 Vitals Last Vital Signs Temp 97.8 F 10/16/22 03:50 Pulse 92 10/16/22 16:45 Resp 20 H 10/16/22 16:45 BP 183/105 10/16/22 16:00 Pulse Ox 95 10/16/22 16:45 O2 Del Method Room Air 10/16/22 16:00 Discharge Plan Discharge Patient Disposition: Home Condition: Stable Prescriptions: New diltiazem HCl 120 mg Capsule,Extended Release 24hr 120 mg PO DAILY 30 Days Qty: 30 0RF Eliquis 5 mg Tablet 5 mg PO BID@0900,2100 30 Days Qty: 30 0RF furosemide 40 mg Tablet 40 mg PO BID@08,16 30 Days Qty: 60 0RF lisinopril 10 mg Tablet 10 mg PO BID PRN (Reason: SBP > 180/100 after nitrobid) 30 Days Qty: 60 0RF pantoprazole 40 mg Tablet,Delayed Release (Dr/Ec) 40 mg PO DAILY 30 Days Qty: 30 0RF Continued ibuprofen 200 mg Tablet 400 mg PO Q6H PRN (Reason: Pain) loperamide 2 mg Tablet 2 - 4 mg PO QID PRN (Reason: diarrhea management) Discontinued clindamycin HCl 300 mg capsule 300 mg PO TID Rx Instructions: 3 x day for 10 days Discharge Orders: Discharge Order (Routine); Ordered 10/16/22 Ordered By: Naa Lara Referrals: Gokul Rich MD [Physician] - 10/24/22 2:00 pm Dave Estrada MD [Physician] - 4-7 days Ashlee Velasquez FNP [Primary Care Provider] - 10/22/22 10:20 am Discharge Diet: Usual diet Discharge Activity: Resume usual activity Patient Instructions: Diltiazem (By mouth), Lisinopril (By mouth) (Prinivil, Zestril), Furosemide (By mouth) (Lasix), Pantoprazole (By mouth) (Protonix), Apixaban (By mouth) (Eliquis), A-fib (Atrial Fibrillation) (DC), CHF Stoplight, Opioid Safety, Pneumonia Stoplight Discharge Attestations Time Spent in Discharge Care*: greater than 30 min Quality Metrics Clinical Quality Measures [ No reported AMI, CVA or VTE this stay] Coding Level of Care Code Acute Code for [facility] Fwd Diagnoses Atrial fibrillation with RVR I48.91 CHF (congestive heart failure) I50.9 Elevated blood pressure reading without diagnosis of hypertension R03.0 Pneumonia J18.9 Contact dermatitis L25.9 Dental infection K04.7 BMI 40.0-44.9, adult Z68.41
--- NOTE | 2022-10-17 12:28 | PC.NURSE ---
Follow Up Referral w/ utility worker film processing Appointment scheduled with Dr. Rich on 10-24-22, arrival at 1:45 pm, appt at 2 pm in Heart care services. Patient has been called at home to inform her on this referral appointment w/a utility worker film processing. [facility]
== END 2022-10-16 16:58 | disposition home or self-care (01) | DRG 308 ==
LOC: ER 14:59 → CSU 16:05
PROVIDERS: Admitting Provider Hospitalist; Emergency Provider Family Medicine; PCP Nurse Practitioner Family; Visit Provider Student in an Organized Health Care Education/Training Program
DX: I48.91 Unspecified atrial fibrillation (principal); J18.9 Pneumonia, unspecified organism; Z68.41 Body mass index [BMI] 40.0-44.9, adult; I50.9 Heart failure, unspecified; R03.0 Elevated blood-pressure reading, without diagnosis of hypertension; K04.7 Periapical abscess without sinus; R35.0 Frequency of micturition; K52.89 Other specified noninfective gastroenteritis and colitis; L25.9 Unspecified contact dermatitis, unspecified cause; J44.9 Chronic obstructive pulmonary disease, unspecified; Z82.49 Family history of ischemic heart disease and other diseases of the circulatory system; Z87.442 Personal history of urinary calculi
CPT/HCPCS: 36415; 51702; 71045; 80048; 80053; 80061; 81003; 83036; 83735; 83880; 84100; 84145; 84443; 84484; 85025; 85378; 85610; 85730; 87040; 93005; 96365; 96366; 96367; 96372; 96375; 96376; 99285; C8929; G0378; J0696; J1650; J1940; J1956; J2930; J3490; J7030; J7512; Q0144; Q9956

== ENCOUNTER → 2022-10-24 12:59 | Outpatient (BNVA) | payer MEDICARE, OTHER, SELFPAY | PROVIDERS: PCP Nurse Practitioner Family; Visit Provider Internal Medicine Cardiovascular Disease | DX: I48.91 Unspecified atrial fibrillation (principal); I11.0 Hypertensive heart disease with heart failure; I50.9 Heart failure, unspecified; R79.89 Other specified abnormal findings of blood chemistry; E66.9 Obesity, unspecified; Z68.41 Body mass index [BMI] 40.0-44.9, adult; Z86.19 Personal history of other infectious and parasitic diseases; Z79.01 Long term (current) use of anticoagulants | CPT/HCPCS: 99204 ==

== ENCOUNTER → 2023-01-30 10:34 | Outpatient (BNVA) | payer MEDICARE, OTHER, SELFPAY | PROVIDERS: PCP Nurse Practitioner Family; Visit Provider Internal Medicine Cardiovascular Disease | DX: I10 Essential (primary) hypertension (principal); I48.91 Unspecified atrial fibrillation; Z79.01 Long term (current) use of anticoagulants | CPT/HCPCS: 99213 ==

== ENCOUNTER 2023-03-07 10:17 | Inpatient (IN) | payer MEDICARE, OTHER, SELFPAY ==
[2023-03-07] VITALS (11 sets, daily range): BP systolic 140–188; BP diastolic 58–126; PULSE 79–140; RESP 15–20; TEMP 36.4–36.8; O2SAT 91–97; BMI 41.1
--- NOTE | 2023-03-07 10:28 | ECG_ITS ---
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 Measurements Intervals [place] Rate: 129 P: 0 AK: 0 QRS: 15 QRSD: 102 T: 149 QT: 315 QTc: 462 Interpretive Statements ATRIAL FIBRILLATION WITH RAPID VENTRICULAR RESPONSE POSSIBLE ANTERIOR MYOCARDIAL INFARCTION , PROBABLY OLD [30 ms Q WAVE IN V3/V4, OR R < 0.2 mV IN V4] ABNORMAL RHYTHM ECG Compared to ECG 10/14/2022 23:11:37 Myocardial infarct finding now present T-wave abnormality no longer present Electronically Signed On 03-07-2023 19:06:54 CDT by Dave Estrada M.D. [email or web address] [email or web address].[email or web address]/store/[id number] f
--- NOTE | 2023-03-07 10:44 | XR_ITS ---
WS: [id number] XR chest 1V portable [id number] REASON FOR EXAM: dyspnea FINDINGS: There is cardiomegaly. There is mild pulmonary venous congestion. Subtle haziness over the lateral lower right lung field with blunting of the right costophrenic angle . No other significant chest abnormality is identified. Moderate degenerative spondylosis in the mid and lower lumbar spine. IMPRESSION: Hazy lung density with pulmonary venous congestion and small right effusion suggest early congestive heart failure.
[2023-03-07 10:58] LABS: Basophils # 0.1 10^3/uL (0.0-0.1); Basophils % 0.6 %; Eosinophils % 0.1 %; Hematocrit 43.1 % (36-47); Lymphocytes # 1.6 10^3/uL (0.8-4.8); Lymphocytes % 14.2 %; Mean Corpuscular HGB Conc 30.9 g/dL (30-55); Mean Corpuscular Hemoglobin 28.7 pg (27-33); Mean Corpuscular Volume 92.9 fl (85-98); Mean Platelet Volume 12.1 fL (7.4-10.4); Monocytes # 0.4 10^3/uL (0.2-0.9); Monocytes % 3.7 %; Neutrophils # 9.13 10^3/uL (1.8-7.7); Nucleated Red Blood Cells % 0 %; Platelet Count 291 10^3/cmm (157-399); Red Blood Count 4.64 10^6/uL (3.85-5.65); Red Cell Distribution Width 14.1 % (12.1-15.1); White Blood Count 11.27 10^3/uL (3.29-11.43)
[2023-03-07] MEDS: dilTIAZem 5 mg/mL SDV 5 mL 20 MG IVP (10:58)
--- NOTE | 2023-03-07 10:58 | PC.PHAR ---
pt states she is only taking the medications entered-pt states the dr increased her lisinopril to 20mg bid ext shows last filled 10mg bid 11/14/22 90d/s-pt states she is no longer taking lasix 40mg bid filled 10/16/22 30d/s,protonix 40mg daily filled 10/16/22 30d/s and diltiazem er 120mg/24h cap daily filled 10/16/22 30d/s
[2023-03-07] MEDS: dilTIAZem 100 MG in sodium chloride 0.9% (add-van) 100 ML IV (10:59)
[2023-03-07 11:21] LABS: Anion Gap 16.3 (5-19); Blood Urea Nitrogen 20 mg/dL (8-23); Carbon Dioxide 27 mmol/L (22-29); Chloride 102 mmol/L (98-107); Glucose 150 mg/dL (65-115); Osmolality Calculated 297 mOsm/kg (285-295); Potassium 4.3 mmol/L (3.5-5.1); Sodium 141 mmol/L (136-145)
--- NOTE | 2023-03-07 11:49 | W.ED.SOB ---
HPI - SOB/Dyspnea General: Chief Complaint: Shortness of Breath/Dyspnea Stated Complaint: phys sent, afib, sob Time Seen by Provider: 03/07/23 10:42 Source: patient Mode of arrival: ambulatory History of Present Illness: HPI Narrative: 73-year-old female who presents to the ED with shortness of breath, she has a known history of atrial fibrillation also has a history o hypertension. Was seen last month and lisinopril was doubled and encouraged her to start on a beta-mitzy as well but she did not want to start too many medicines at once according to cardiology note. She has noticed at home rapid heart rates at times which she monitors her heart rate with a finger oxygen saturation monitor. States worse when she does any activity. She is currently on anticoagulation but she is not on anything for rate control. No chest pain. f MD elicited complaint: shortness of breath and cough Pertinent past history: other (Atrial fibrillation) Timing: intermittent Severity: moderate Exacerbating factors: nothing Relieving factors: rest Known history of: other (Atrial fibrillation) Associated symptoms: Reports chest pain, lightheadedness, orthopnea and palpitations; Deny abdominal pain, fever(s), nausea or vomiting Treatment prior to arrival: none Review of Systems Const: Denies: fever(s), chills, body aches, change in appetite, fatigue or malaise ENMT: Denies: throat pain, ear or mastoid pain, nasal discharge or nasal congestion Card: Reports: chest pain, palpitations, irregular heart rhythm, edema, lightheadedness, dyspnea on exertion and orthopnea Resp: Reports: dyspnea; Denies: productive cough or non-productive cough GI: Denies: abdominal pain, nausea, vomiting, hematemesis, coffee ground emesis, diarrhea, constipation, bloating, hematochezia or melena : Denies: flank pain, difficulty voiding, dysuria, urinary frequency or urinary urgency Skin/Breast: Denies: rash or pruritus PFSH ED PFSH: Medical History 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, takes antidiarrheal regularly History of thyroiditis in 1980s, on medication for a while; thyroid function later normalized Hypertension Urolithiasis right proximal ureteral stone 5mm in 12/2021 (passed with conservative management) along with other stones noted; q2 year KUBs recommended by urology, follows dietary modification for stone risk reduction Surgical History History of appendectomy History of oophorectomy left History of rectal surgery at age 12 years 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 to difficulty stooling; now with chronic loose stools Family History Mother , AT AGE 87 Lung disease COPD Rheumatoid arthritis Heart failure Father , AT AGE 43 Alcohol abuse Heart attack presumptive diagnosis as had sudden episode Brother Smoker Social History Smoking and tobacco status: never smoked Alcohol intake: never Household members: none Marital status: Current occupational status: employed Current occupation: [employer] Pets and animals: Yes Pets & animals: cat(s) Physical Exam Const: GENERAL APPEARANCE: cooperative and comfortable ORIENTATION/CONSCIOUSNESS: Yes awake, Yes oriented to person, Yes oriented to place and Yes oriented to time HENMT: COMMON NORMALS: normocephalic, atraumatic and hearing grossly normal bilaterally HEAD & SCALP: normocephalic and atraumatic Resp: COMMON NORMALS: normal respiratory effort, No retractions, No use of accessory muscles and clear to auscultation bilaterally AUSCULTATION: clear to auscultation bilaterally Cardio: COMMON NORMALS: regular rate, regular rhythm and No murmurs present (Cardio) RATE: regular rate RHYTHM: regular rhythm GI: COMMON NORMALS: Soft to palpation and No hepatosplenomegaly present AUSCULTATION: Yes normoactive bowel sounds PALPATION: Yes Soft to palpation, No Tenderness to palpation present (GI), No Guarding due to palpation present (GI) and Yes No hepatosplenomegaly present Extremity: COMMON NORMALS: normal to inspection, capillary refill normal, no clubbing, cyanosis or edema, no calf tenderness and no pedal edema Neuro: SENSORIUM/ORIENTATION: Yes oriented to person, Yes oriented to place and Yes oriented to time Skin: COMMON NORMALS: no rashes or lesions noted GENERAL SKIN EXAM: no rashes or lesions noted Course Vital Signs: Vital signs: Vital Signs Temperature 98.4 F 03/09/23 07:33 Pulse Rate 89 03/09/23 14:33 Respiratory Rate 16 03/09/23 13:05 Blood Pressure 122/85 03/09/23 13:05 Pulse Oximetry 91 03/09/23 13:05 Oxygen Delivery Me thod Nasal Cannula 03/09/23 08:00 Oxygen Flow Rate 1 03/09/23 08:00 MDM - SOB/Dyspnea Medical Decision Making A-fib with RVR with exacerbation of congestive heart failure discussed with hospitalist will admit. Orders written Medical Records I reviewed the patient's medical records. Lab Data I reviewed the patient's lab results. 03/09/23 03:40 03/09/23 03:40 Labs/Radiology: Laboratory Results WBC 11.27 10^3/uL (3.29-11.43) 03/07/23 10:50 RBC 4.64 10^6/uL (3.85-5.65) 03/07/23 10:50 Hgb 13.30 g/dL (11.27-16.99) 03/07/23 10:50 Hct 43.1 % (36-47) 03/07/23 10:50 MCV 92.9 fl (85-98) 03/07/23 10:50 MCH 28.7 pg (27-33) 03/07/23 10:50 MCHC 30.9 g/dL (30-55) 03/07/23 10:50 RDW 14.1 % (12.1-15.1) 03/07/23 10:50 Plt Count 291 10^3/cmm (157-399) 03/07/23 10:50 MPV 12.1 fL (7.4-10.4) H 03/07/23 10:50 Neut % (Auto) 81.0 % 03/07/23 10:50 Lymph % (Auto) 14.2 % 03/07/23 10:50 Emmet % (Auto) 3.7 % 03/07/23 10:50 Eos % (Auto) 0.1 % 03/07/23 10:50 Baso % (Auto) 0.6 % 03/07/23 10:50 Neut # (Auto) 9.13 10^3/uL (1.8-7.7) H 03/07/23 10:50 Lymph # (Auto) 1.6 10^3/uL (0.8-4.8) 03/07/23 10:50 Emmet # (Auto) 0.4 10^3/uL (0.2-0.9) 03/07/23 10:50 Eos # (Auto) 0.0 10^3/uL (0.0-0.8) 03/07/23 10:50 Baso # (Auto) 0.1 10^3/uL (0.0-0.1) 03/07/23 10:50 Nucleated RBC % (auto) 0 % 03/07/23 10:50 Nucleated RBCs # 0.0 /100WBC 03/07/23 10:50 Sodium 141 mmol/L (136-145) 03/07/23 10:50 Potassium 4.3 mmol/L (3.5-5.1) 03/07/23 10:50 Chloride 102 mmol/L (98-107) 03/07/23 10:50 Carbon Dioxide 27 mmol/L (22-29) 03/07/23 10:50 Anion Gap 16.3 (5-19) 03/07/23 10:50 BUN 20 mg/dL (8-23) 03/07/23 10:50 Creatinine 0.6 mg/dL (0.5-0.9) 03/07/23 10:50 GFR Calculation Not Reportable 03/07/23 10:50 Glucose 150 mg/dL (65-115) H 03/07/23 10:50 Estimat Average Glucose 123 03/07/23 10:50 Hemoglobin A1c 5.9 % (4.0-6.0) 03/07/23 10:50 Calculated Osmolality 297 mOsm/kg (285-295) H 03/07/23 10:50 Calcium 9.0 mg/dL (8.5-10.5) 03/07/23 10:50 Magnesium 2.1 mg/dL (1.7-2.3) 03/07/23 13:53 Troponin T Baseline 13 ng/L (0-10) H 03/07/23 13:53 C-Reactive Protein 8.3 mg/L (0.0-4.9) H 03/07/23 13:53 NT-Pro-B Natriuret Pep 2446 pg/mL (0-125) H 03/07/23 13:53 Triglycerides 120 mg/dL (0-150) 03/07/23 10:50 Cholesterol 211 mg/dL (0-200) H 03/07/23 10:50 LDL Cholesterol, Calc 135 mg/dL (50-129) H 03/07/23 10:50 HDL Cholesterol 52 mg/dL (60-100) L 03/07/23 10:50 LDL/HDL Ratio 2.60 RATIO (0.00-3.22) 03/07/23 10:50 Cholesterol/HDL Ratio 4.06 mg/dL (0.0-4.40) 03/07/23 10:50 Procalcitonin 0.04 ng/mL (0-0.5) 03/07/23 13:53 TSH 1.98 uIU/mL (0.27-4.20) 03/07/23 13:53 All radiology interpretation(s) finalized by discharge Discharge Plan Discharge Patient Disposition: Admitted As Inpatient Admit Provider: Tato Hernandez Clinical Impression: Atrial fibrillation with RVR, Systolic CHF, acute on chronic Condition: Stable Coding Level of Care Code ED 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
[2023-03-07] MEDS: dilTIAZem 60 mg Tablet PO (11:59)
[2023-03-07] MEDS: FUROsemide 10 mg/mL SDV 4mL 40 MG IVP ×2 (11:59→21:49)
--- NOTE | 2023-03-07 13:54 | ECG_ITS ---
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 Measurements Intervals [place] Rate: 89 P: 0 IA: 0 QRS: 4 QRSD: 102 T: 149 QT: 371 QTc: 452 Interpretive Statements ATRIAL FIBRILLATION POSSIBLE ANTERIOR MYOCARDIAL INFARCTION , PROBABLY OLD [30 ms Q WAVE IN V3/V4, OR R < 0.2 mV IN V4] ABNORMAL RHYTHM ECG Compared to ECG 03/07/2023 10:28:40 No significant changes Electronically Signed On 03-07-2023 19:08:03 CDT by Dave Estrada M.D. [id number]
[2023-03-07 14:25] LABS: Troponin(5th) Baseline 13 ng/L (0-10)
--- NOTE | 2023-03-07 14:33 | USCV_ITS ---
Satya Cameron Age: 73 Gender: F : 1950 Exam Date: 03/07/2023 16:23 Ordering Phys: Ttao Hernandez MD Technologist: Lorenzo Kemp Exam Location: [facility] Indication: sob BP: 140 / 85 HR: 109 Rhythm: Sinus Technical Quality: Adequate MEASUREMENTS (Male / Female) Normal Values 2D ECHO LV Diastolic Diameter PLAX 5.4 cm 4.2 - 5.9 / 3.9 - 5.3 cm LV Systolic Diameter PLAX 4.2 cm IVS Diastolic Thickness 1.1 cm 0.6 - 1.0 / 0.6 - 0.9 cm IVS Systolic Thickness 1.7 cm LVPW Diastolic Thickness 1.1 cm 0.6 - 1.0 / 0.6 - 0.9 cm LVPW Systolic Thickness 1.3 cm LVOT Diameter 2.1 cm LV Ejection Fraction 2D Teich 36.2 % LV Ejection Fraction MOD 2C 43.1 % LV Ejection Fraction 2C AL 43.3 % LA Diameter 4.6 cm IVC Diameter 2.4 cm M-MODE Aortic Annulus Diameter 2.9 cm LA Ao Ratio MM 1.6 MV E Point Septal Separation 1.6 cm DOPPLER AV Peak Velocity 98.0 cm/s LVOT Peak Velocity 73.0 cm/s AV Area Cont Eq vti 2.8 cm squared AV Area Cont Eq pk 2.6 cm squared MV Area PHT 4.8 cm squared Mitral E to A Ratio 3.3 MV E' Velocity 59.5 cm/s Mitral E to MV E' Ratio 16.0 Mitral E to LV E' Lateral Ratio 13.8 Mitral E to LV E' Septal Ratio 19.1 TR Peak Velocity 185.0 cm/s TR Peak Gradient 13.7 mmHg TV Peak E Velocity 104.0 cm/s Right Atrial Pressure 3.0 mmHg Pulmonary Artery Systolic Pressu 16.7 mmHg FINDINGS Left Ventricle Technically limited quality echocardiogram because of poor ultrasonic windows. LV systolic function is grossly moderately reduced. Regional wall motion abnormalities cannot accurately be assessed because of poor visualization Right Ventricle Normal in size and function Right Atrium Not well visualized Left Atrium Dilated Mitral Valve Moderate mitral annular calcification seen. Mild mitral regurgitation. Aortic Valve Structurally normal aortic valve. No significant stenosis or regurgitation seen. Tricuspid Valve Mild tricuspid regurgitation. Pulmonary artery systolic pressure is normal. Pulmonic Valve Not well visualized Pericardium Trace pericardial effusion Aorta Normal size IVC Dilated CONCLUSIONS Technically limited quality echocardiogram because of poor ultrasonic windows. Grossly LV systolic function is moderately reduced. Left atrial dilation Mild mitral regurgitation Mild tricuspid regurgitation Trace pericardial effusion Accurate comparison with prior echocardiogram from 10/2022 not possible because of limited visualization Pool Solomon MD (Electronically Signed) Final Date: 08 March 2023 11:20 S
--- NOTE | 2023-03-07 14:36 | P.HP_ITS ---
Providers/Chief Complaint Admitting Physician: Tato Hernandez MD Primary Care Provider: NANCY Portillo Chief Complaint: phys sent, afib, sob History of Present Illness Satya Cameron is a 73 year old female with a past history of atrial fibrillation on Eliquis, history of systolic CHF, hypokinesis of the left ventricle, moderate tricuspid valve regurg, history of diastolic and systolic CHF, history of obesity, who presents to [facility] due to increased shortness of breath, lower extremity edema, she is also noticing a rapid heart rate. Denies any fevers, chills, no cough no recent surgery, no calf pain, no calf swelling, no history of PE, no hemoptysis she does report chest discomfort, under her left breast she thought it was acid reflux, but it persists, nonradiating, associate with shortness of breath Review of Systems Const: Denies: fever(s) Card: Reports: chest pain, dyspnea on exertion and orthopnea Resp: Reports: dyspnea; Denies: non-productive cough GI: Denies: abdominal pain : Denies: flank pain or difficulty voiding Musc: Denies: neck pain or back pain Skin/Breast: Denies: rash Neuro: Denies: headache(s) or numbness in extremities Endo: Denies: polyuria Medications/Allergies Home Medications Medication Instructions Recorded Confirmed Last Taken Type loperamide 2 mg tablet 2 - 4 mg PO QID PRN diarrhea 10/14/22 03/07/23 10/13/22 History management apixaban 5 mg tablet (Eliquis) 5 mg PO BID@0900,2100 #60 tabs 10/24/22 03/07/23 03/07/23 Rx acetaminophen 500 mg tablet 500 - 1,000 mg PO Q6H PRN Pain 03/07/23 03/07/23 Unknown History lisinopril 20 mg tablet 20 mg PO BID 03/07/23 03/07/23 03/07/23 History Allergies Allergy/AdvReac Type Severity Reaction Status Date / Time Sulfa (Sulfonamide Allergy RASH Verified 03/07/23 10:56 Antibiotics) PFSH Acute PFSH: Medical History 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, takes antidiarrheal regularly History of thyroiditis in 1980s, on medication for a while; thyroid function later normalized Hypertension Urolithiasis right proximal ureteral stone 5mm in 12/2021 (passed with conservative management) along with other stones noted; q2 year KUBs recommended by urology, follows dietary modification for stone risk reduction Surgical History History of appendectomy History of oophorectomy left History of rectal surgery at age 12 years 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 to difficulty stooling; now with chronic loose stools Family History Mother , AT AGE 87 Lung disease COPD Rheumatoid arthritis Heart failure Father , AT AGE 43 Alcohol abuse Heart attack presumptive diagnosis as had sudden episode Brother Smoker Social History Smoking and tobacco status: never smoked Alcohol intake: never Household members: none Marital status: Current occupational status: employed Current occupation: [employer] Pets and animals: Yes Pets & animals: cat(s) Vitals/I&O/Wt Last Vital Signs Temp 98.2 F 03/07/23 10:23 Pulse 90 03/07/23 14:00 Resp 18 03/07/23 14:00 BP 152/123 03/07/23 14:00 Pulse Ox 97 03/07/23 14:00 O2 Del Method Room Air 03/07/23 14:00 03/06/23 03/07/23 03/07/23 22:59 06:59 14:59 Intake Total 10.167 / 10.167 Balance 10.167 / 10.167 Weight last 48 hrs Weight 108.862 kg Physical Exam Const: COMMON NORMALS: no acute distress and patient oriented x3 GENERAL APPEARANCE: cooperative, well kempt and well developed HENMT: COMMON NORMALS: normocephalic and Normal external nose present HEAD & SCALP: normocephalic FACE & SINUS: normal facial exam NOSE: Normal ex ternal nose present Eye: COMMON NORMALS: Equal, round and reactive pupils present, conjunctivae normal and no scleral icterus CONJUNCTIVA: Yes conjunctivae normal PUPIL: Yes Equal, round and reactive pupils present Neck/C-Spine: COMMON NORMALS: full ROM, no lymphadenopathy, no JVD and Thyroid normal Chest: COMMONS NORMALS: normal inspection of the chest Resp: COMMON NORMALS: normal respiratory effort, No retractions and No use of accessory muscles AUSCULTATION: crackles Cardio: COMMON NORMALS: regular rhythm, S1 normal heart sound present, S2 normal heart sound present, No murmurs present (Cardio) and Peripheral pulses 2+ throughout RATE: regular rate RHYTHM: abnormal rhythm irregularly irregular HEART SOUNDS: S1 normal heart sound present and S2 normal heart sound present PERIPHERAL PULSES: Peripheral pulses 2+ throughout GI: COMMON NORMALS: Normal to inspection, nondistended, normoactive bowel sounds present, Soft to palpation and non-tender : BLADDER/KIDNEY EXAM: Yes no CVA tenderness Back/Pelvis: COMMON NORMALS: no CVA tenderness Extremity: COMMON NORMALS: no calf tenderness Neuro: COMMON NORMALS: patient oriented x3, CN's II-XII intact bilaterally, moves all extremities, no focal motor deficits and no sensory deficits noted MENINGEAL SIGNS: Yes no meningeal signs Psych: COMMON NORMALS: mental status grossly normal, Normal thought process present, cooperative and speech normal APPEARANCE: Yes well kempt SPEECH: Yes normal speech THOUGHT PROCESS: Normal thought process present Skin: COMMON NORMALS: turgor normal and no jaundice NARRATIVE SKIN EXAM: 4+ pitting edema GENERAL SKIN EXAM: turgor normal Data 03/07/23 10:50 03/07/23 10:50 A&P Assessment and plan (1) Atrial fibrillation with RVR: (2) Systolic CHF, acute on chronic: (3) Chest pain: (4) BMI 40.0-44.9, adult: Plan A-fib with RVR -Status post Cardizem in the emergency room -Given her heart failure, switch to metoprolol 25 twice daily -Will monitor -Continue Eliquis -TSH, mag Chest pain -Serial EKGs, serial troponins, telemetry monitoring -Aspirin, statin, beta-mitzy, cardiac echo Systolic CHF exacerbation -Fluid restrictions 1000 cc -Place Carrington catheter -Lasix 40 IV twice daily -Repeat cardiac echo -Monitor creatinine monitor urine output Morbid obesity Full code Eliquis for DVT prophylaxis Attestations Medical Necessity Statement*: Patient requires hospitalization, inpatient, greater than 2 midnight A-fib with RVR, fluid overload, systolic CHF exacerbation, chest pain Diagnoses Atrial fibrillation with RVR I48.91 Systolic CHF, acute on chronic I50.23 Chest pain R07.9 BMI 40.0-44.9, adult Z68.41
[2023-03-07 14:41] LABS: NT Pro B Type Natriuretic Pept 2446 pg/mL (0-125); Procalcitonin 0.04 ng/mL (0-0.5); Thyroid Stimulating Hormone 1.98 uIU/mL (0.27-4.20)
[2023-03-07 14:52] LABS: C Reactive Protein 8.3 mg/L (0.0-4.9); Magnesium 2.1 mg/dL (1.7-2.3)
[2023-03-07 15:39] LABS: Chol HDL Ratio 4.06 mg/dL (0.0-4.40); Cholesterol 211 mg/dL (0-200); HDL Cholesterol 52 mg/dL (60-100); LDL Cholesterol Calculated 135 mg/dL (50-129); Triglycerides 120 mg/dL (0-150)
--- NOTE | 2023-03-07 15:46 | ECG_ITS ---
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 Measurements Intervals [place] Rate: 84 P: 0 WI: 0 QRS: 20 QRSD: 108 T: 107 QT: 383 QTc: 454 Interpretive Statements ATRIAL FIBRILLATION NONSPECIFIC T-WAVE ABNORMALITY Compared to ECG 03/07/2023 13:54:26 T-wave abnormality now present Myocardial infarct finding no longer present Electronically Signed On 03-07-2023 19:17:45 CDT by Dave Estrada M.D. [id number]
[2023-03-07] MEDS: aspirin 81 mg EC Tablet PO (16:05)
[2023-03-07] MEDS: potassium chloride ER 20 mEq Tablet 40 MEQ PO (16:05)
[2023-03-07] MEDS: metoprolol tartrate 25 mg Tablet PO (16:05)
[2023-03-07 16:07] LABS: Estmated Average Glucose 123; Hemoglobin A1C 5.9 % (4.0-6.0)
[2023-03-07 16:38] LABS: Add Urine Microscopic? NO; Charge for UA Resulting for Rev
[2023-03-07 16:52] LABS: Bilirubin Urine Neg (Negative); Blood Urine Neg (Negative); Glucose Urine UA Norm (Normal); Ketones Urine Negative (Negative); Leukocyte Esterase Urine Negative (Negative); Nitrate Urine Negative (Negative); Protein Urine Neg (Negative); Specific Gravity, Urine 1.005 (1.005-1.030); Urine Appearance Clear (CLEAR); Urine Color Yellow (Yellow); Urobilinogen Urine Norm (Negative); pH Urine 7 (5-7)
[2023-03-07 20:07] LABS: Troponin 5 6HR 15.27 ng/L (0-10)
[2023-03-07 20:08] LABS: Troponin 5 6HR Delta 2.27 ng/L (0-12)
[2023-03-07] MEDS: atorvastatin 40 mg Tablet PO (21:49)
[2023-03-07] MEDS: apixaban 5 mg Tablet PO (21:49)
[2023-03-08] VITALS (13 sets, daily range): BP systolic 100–152; BP diastolic 62–99; PULSE 70–105; RESP 15–24; TEMP 36.5–36.9; O2SAT 91–95
[2023-03-08] MEDS: loperamide 2 mg Capsule PO (02:19)
[2023-03-08] MEDS: metoprolol tartrate 25 mg Tablet PO (02:19)
[2023-03-08 03:30] LABS: Basophils # 0.1 10^3/uL (0.0-0.1); Eosinophils # 0.1 10^3/uL (0.0-0.8); Eosinophils % 1.4 %; Hematocrit 39.9 % (36-47); Lymphocytes # 2.9 10^3/uL (0.8-4.8); Lymphocytes % 28.8 %; Mean Corpuscular HGB Conc 31.3 g/dL (30-55); Mean Corpuscular Hemoglobin 29.1 pg (27-33); Mean Platelet Volume 12.1 fL (7.4-10.4); Monocytes # 0.6 10^3/uL (0.2-0.9); Monocytes % 5.5 %; Neutrophils # 6.42 10^3/uL (1.8-7.7); Nucleated Red Blood Cells % 0 %; Platelet Count 271 10^3/cmm (157-399); Red Blood Count 4.29 10^6/uL (3.85-5.65); Red Cell Distribution Width 14.1 % (12.1-15.1); White Blood Count 10.18 10^3/uL (3.29-11.43)
[2023-03-08 04:07] LABS: Anion Gap 11.6 (5-19); Blood Urea Nitrogen 18 mg/dL (8-23); Calcium 8.6 mg/dL (8.5-10.5); Carbon Dioxide 32 mmol/L (22-29); Chloride 99 mmol/L (98-107); Glucose 112 mg/dL (65-115); Osmolality Calculated 291 mOsm/kg (285-295); Potassium 3.6 mmol/L (3.5-5.1); Sodium 139 mmol/L (136-145)
[2023-03-08 04:13] LABS: NT Pro B Type Natriuretic Pept 2045 pg/mL (0-125)
[2023-03-08] MEDS: pantoprazole DR 40 mg Tablet PO (08:29)
[2023-03-08] MEDS: apixaban 5 mg Tablet PO ×2 (08:29→20:52)
[2023-03-08] MEDS: FUROsemide 10 mg/mL SDV 4mL 40 MG IVP ×2 (08:29→20:42)
[2023-03-08] MEDS: aspirin 81 mg EC Tablet PO (08:29)
[2023-03-08] MEDS: potassium chloride ER 20 mEq Tablet 40 MEQ PO (09:31)
[2023-03-08] MEDS: metOLazone 5 MG Tablet PO (09:32)
--- NOTE | 2023-03-08 16:16 | PM.PN ---
Subjective Subjective: Patient was seen this morning she feels a lot better, she was seen ambulating with physical therapy, after physical therapy, she was tachypneic, O2 sats in the low 90s, heart rates in the 120s to 130s, A-fib, she continues to have pitting edema lower extremity but she tells me she feels significant better no chest pain, no lightheadedness Vitals/I&O/Wt Last Vital Signs Temp 98.1 F 03/08/23 15:47 Pulse 88 03/08/23 15:47 Resp 15 03/08/23 15:47 BP 100/62 03/08/23 15:47 Pulse Ox 95 03/08/23 15:47 O2 Del Method Room Air 03/08/23 15:47 03/08/23 03/08/23 03/08/23 06:59 14:59 22:59 Intake Total 360 / 360 Output Total 950 / 1999 2350 / 2350 Balance -950 / -1629.833 -1989 / Weight last 48 hrs Weight 108.862 kg Physical Exam Const: COMMON NORMALS: no acute distress and patient oriented x3 Resp: COMMON NORMALS: normal respiratory effort, No retractions, No use of accessory muscles and clear to auscultation bilaterally AUSCULTATION: clear to auscultation bilaterally Cardio: COMMON NORMALS: S1 normal heart sound present and S2 normal heart sound present RATE: tachycardic RHYTHM: abnormal rhythm irregularly irregular HEART SOUNDS: S1 normal heart sound present and S2 normal heart sound present OTHER: Heart rates 120s to 130s with exertion GI: COMMON NORMALS: Normal to inspection, nondistended, normoactive bowel sounds present and non-tender Neuro: COMMON NORMALS: patient oriented x3 Psych: COMMON NORMALS: mental status grossly normal Urinary Catheter Management: Carrington: Cath Placed During This Visit: yes Reason for Continuing Indwelling Catheter: Accurate Measurement of Urinary Output in Critically Ill Patients Urinary Catheter Date of Insertion: 03/07/23 Urinary Catheter Time of Insertion: 16:50 Data 03/08/23 03:07 03/08/23 03:07 A&P Assessment and plan (1) Atrial fibrillation with RVR: (2) Systolic CHF, acute on chronic: (3) Chest pain: (4) BMI 40.0-44.9, adult: Plan A-fib with RVR -Status post Cardizem in the emergency room -Heart rate still 120s to 130s with exertion, increase metoprolol to 50 twice daily -Will monitor -Continue Eliquis -TSH, mag within normal limits Chest pain -Serial EKGs, serial troponins, telemetry monitoring -Aspirin, statin, beta-mitzy, cardiac echo CONCLUSIONS ?Technically limited quality echocardiogram because of poor ?ultrasonic windows. ?Grossly LV systolic function is moderately reduced. ?Left atrial dilation ?Mild mitral regurgitation ?Mild tricuspid regurgitation ?Trace pericardial effusion ?Accurate comparison with prior echocardiogram from 10/2022 not ?possible because of limited visualization -We will keep n.p.o. midnight tomorrow, do stress test on Friday Systolic CHF exacerbation -Fluid restrictions 1000 cc -Place Carrington catheter -Lasix 40 IV twice daily -Repeat cardiac echo -Monitor creatinine monitor urine output Morbid obesity Full code Eliquis for DVT prophylaxis Plan for today continue Lasix 40 IV twice daily add 1 dose of metolazone continue to diurese, watch urine output, monitor creatinine, plan on stress testing on Friday Attestations Medical Necessity Statement*: Patient requires hospitalization. For A-fib with RVR, systolic CHF exacerbation, fluid overload Diagnoses Atrial fibrillation with RVR I48.91 Systolic CHF, acute on chronic I50.23 Chest pain R07.9 BMI 40.0-44.9, adult Z68.41
[2023-03-08] MEDS: metoprolol tartrate 25 mg Tablet 50 MG PO (17:32)
[2023-03-08] MEDS: atorvastatin 40 mg Tablet PO (20:53)
[2023-03-09] VITALS (60 sets, daily range): BP systolic 120–141; BP diastolic 61–99; PULSE 59–109; RESP 12–25; TEMP 36.6–36.9; O2SAT 87–96
[2023-03-09 04:47] LABS: Basophils # 0.1 10^3/uL (0.0-0.1); Basophils % 1.1 %; Eosinophils # 0.2 10^3/uL (0.0-0.8); Eosinophils % 2.3 %; Lymphocytes # 3.3 10^3/uL (0.8-4.8); Mean Corpuscular HGB Conc 31.3 g/dL (30-55); Mean Corpuscular Hemoglobin 28.7 pg (27-33); Mean Platelet Volume 12.5 fL (7.4-10.4); Monocytes # 0.5 10^3/uL (0.2-0.9); Monocytes % 5.6 %; Neutrophils # 5.25 10^3/uL (1.8-7.7); Neutrophils % 55.8 %; Nucleated Red Blood Cells % 0 %; Platelet Count 282 10^3/cmm (157-399); Red Blood Count 4.35 10^6/uL (3.85-5.65); Red Cell Distribution Width 13.9 % (12.1-15.1); White Blood Count 9.41 10^3/uL (3.29-11.43)
[2023-03-09 05:13] LABS: Anion Gap 9.6 (5-19); Blood Urea Nitrogen 17 mg/dL (8-23); Carbon Dioxide 38 mmol/L (22-29); Chloride 95 mmol/L (98-107); Glucose 85 mg/dL (65-115); Osmolality Calculated 289 mOsm/kg (285-295); Potassium 3.6 mmol/L (3.5-5.1); Sodium 139 mmol/L (136-145)
[2023-03-09] MEDS: metoprolol tartrate 25 mg Tablet 50 MG PO ×2 (06:27→17:21)
[2023-03-09] MEDS: aspirin 81 mg EC Tablet PO (08:38)
[2023-03-09] MEDS: apixaban 5 mg Tablet PO ×2 (08:38→20:45)
[2023-03-09] MEDS: pantoprazole DR 40 mg Tablet PO (08:38)
--- NOTE | 2023-03-09 08:41 | ECG_ITS ---
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 Interpretive Statements NAME OF STUDY: LEXISCAN SESTAMIBI STRESS TEST INDICATION: Chest Pain, PROCEDURE: At the baseline, the EKG revealed atrial fibrillation with rapid ventricular rate of [address]-T changes. Poor R wave progression.. The baseline heart was 109 bpm with a blood pressue of 139/79 mm of Hg Lexiscan was infused over a period of 20 seconds. A total of 0.4 milligrams of Lexiscan was infused. The stress phase was continued for a total of 5 minutes. Heart rate at the end of the stress phase was 113 bpm with a blood pressure 126/81 mm of Hg. The EKG at the peak infusion revealed no significant changes. Sestamibi was injected 20 seconds after the Lexiscan infusion. Heart rate at the end of the recovery phase was 104 bpm with a blood pressure of 110/80 mm of Hg. CONCLUSION: 1. No significant EKG changes with the LexiScan infusion 2. No LexiScan induced chest pain or cardiac arrhythmia 3. Normal blood pressure and heart rate response 4. Sestamibi/sestamibi perfusion scan pending; see separate report. Electronically Signed On 03-13-2023 23:33:26 CDT by Dave Estrada M.D. [id number]
[2023-03-09] MEDS: metOLazone 5 MG Tablet PO (09:15)
[2023-03-09] MEDS: FUROsemide 10 mg/mL SDV 4mL 40 MG IVP (09:15)
[2023-03-09] MEDS: potassium chloride ER 20 mEq Tablet 40 MEQ PO (09:16)
--- NOTE | 2023-03-09 10:28 | PM.PN ---
Subjective Subjective: Patient was seen this morning, she tells me she feels significantly better, her edema is improving her shortness of breath is improving, no chest pain, no palpitations does have epigastric discomfort, no nausea, no vomiting Vitals/I&O/Wt Last Vital Signs Temp 98.4 F 03/09/23 07:33 Pulse 65 03/09/23 08:00 Resp 16 03/09/23 08:00 BP 122/85 03/09/23 07:33 Pulse Ox 95 03/09/23 08:00 O2 Del Method Nasal Cannula 03/09/23 08:00 O2 Flow Rate 1 03/09/23 08:00 03/08/23 03/09/23 03/09/23 22:59 06:59 14:59 Intake Total 1210 / 1570 230 / 1800 480 / 480 Output Total 3900 / 6250 Balance 1210 / -780 -3670 / -4450 480 / 480 Physical Exam Const: COMMON NORMALS: no acute distress and patient oriented x3 Resp: COMMON NORMALS: normal respiratory effort, No retractions, No use of accessory muscles and clear to auscultation bilaterally AUSCULTATION: clear to auscultation bilaterally Cardio: COMMON NORMALS: regular rate, regular rhythm, S1 normal heart sound present and S2 normal heart sound present RATE: regular rate RHYTHM: regular rhythm HEART SOUNDS: S1 normal heart sound present and S2 normal heart sound present GI: COMMON NORMALS: Normal to inspection, nondistended, normoactive bowel sounds present and non-tender Extremity: NARRATIVE EXTREMITY EXAM: 1+ pitting edema Neuro: COMMON NORMALS: patient oriented x3 Psych: COMMON NORMALS: mental status grossly normal Urinary Catheter Management: Carrington: Cath Placed During This Visit: yes Reason for Continuing Indwelling Catheter: Other Urinary Catheter Date of Insertion: 03/07/23 Urinary Catheter Time of Insertion: 16:50 Data 03/09/23 03:40 03/09/23 03:40 A&P Assessment and plan (1) Atrial fibrillation with RVR: (2) Systolic CHF, acute on chronic: (3) Chest pain: (4) BMI 40.0-44.9, adult: Plan A-fib with RVR -Status post Cardizem in the emergency room - metoprolol to 50 twice daily -Will monitor -Continue Eliquis -TSH, mag within normal limits Atypical chest discomfort, describes epigastric discomfort -Serial EKGs, serial troponins, telemetry monitoring -Aspirin, statin, beta-mitzy, cardiac echo CONCLUSIONS ?Technically limited quality echocardiogram because of poor ?ultrasonic windows. ?Grossly LV systolic function is moderately reduced. ?Left atrial dilation ?Mild mitral regurgitation ?Mild tricuspid regurgitation ?Trace pericardial effusion ?Accurate comparison with prior echocardiogram from 10/2022 not ?possible because of limited visualization -We will keep n.p.o. midnigh ttoday, do stress test on Friday Systolic CHF exacerbation, -6L -Fluid restrictions 1000 cc -Place Carrington catheter -Lasix 40 IV , metolazone, with potassium today -Repeat cardiac echo -Monitor creatinine monitor urine output Morbid obesity Full code Eliquis for DVT prophylaxis Plan for today continue Lasix 40 IV one dose, add 1 dose of metolazone continue to diurese, watch urine output, monitor creatinine, plan on stress testing on tommorow Attestations Medical Necessity Statement*: Patient requires requires hospitalization for CHF exacerbation, requiring diuresis, atrial fibrillation, requiring heart rate monitoring, diminished ejection fraction requiring stress test tomorrow Diagnoses Atrial fibrillation with RVR I48.91 Systolic CHF, acute on chronic I50.23 Chest pain R07.9 BMI 40.0-44.9, adult Z68.41
[2023-03-09] MEDS: atorvastatin 40 mg Tablet PO (20:45)
[2023-03-10] VITALS (101 sets, daily range): BP systolic 109–140; BP diastolic 68–113; PULSE 65–129; RESP 1–31; TEMP 36.5–37; O2SAT 9–98
--- NOTE | 2023-03-10 06:11 | PC.NURSE ---
pt did not receive metoprolol at 0600 due to the NPO status for stress test and the potential of gi upset throughout test. nurse to notify next shift nurse to administer after the completion of stress test.
[2023-03-10 06:53] LABS: Basophils # 0.1 10^3/uL (0.0-0.1); Basophils % 0.9 %; Eosinophils # 0.3 10^3/uL (0.0-0.8); Eosinophils % 2.3 %; Hematocrit 49.7 % (36-47); Lymphocytes # 3.9 10^3/uL (0.8-4.8); Lymphocytes % 32.4 %; Mean Corpuscular Hemoglobin 28.5 pg (27-33); Mean Platelet Volume 12.3 fL (7.4-10.4); Monocytes # 0.7 10^3/uL (0.2-0.9); Monocytes % 5.4 %; Neutrophils # 7.01 10^3/uL (1.8-7.7); Neutrophils % 58.6 %; Nucleated Red Blood Cells % 0 %; Platelet Count 328 10^3/cmm (157-399); Red Cell Distribution Width 13.8 % (12.1-15.1); White Blood Count 11.97 10^3/uL (3.29-11.43)
[2023-03-10 07:10] LABS: Anion Gap 14.3 (5-19); Blood Urea Nitrogen 19 mg/dL (8-23); Calcium 10.1 mg/dL (8.5-10.5); Carbon Dioxide 37 mmol/L (22-29); Chloride 95 mmol/L (98-107); Glucose 101 mg/dL (65-115); Osmolality Calculated 296 mOsm/kg (285-295); Potassium 4.3 mmol/L (3.5-5.1); Sodium 142 mmol/L (136-145)
[2023-03-10] MEDS: regadenoson 0.4 Mg/5 ml Syringe IVP (07:13)
--- NOTE | 2023-03-10 08:41 | NMCV_ITS ---
NM kenia perf SPECT r/s* [id number] Satya Cameron Age: 73 Gender: F : 1950 Exam Date: 03/10/2023 06:41 Ordering Phys: Tato Hernandez MD Technologist: TRA Alvarado Exam Location: [facility] Indications: CHEST PAIN STRESS TEST Please see separate stress test report in [facility] for full findings IMAGE PROTOCOL Rest/Stress 1 Lexiscan Day Radiopharmaceutical Dose (mCi) Administration Site Administered by Rest: Tc-99m 10.6 IV TRA Mccartney Sestamibi Stress:Tc-99m 32.8 IV TRA Alvarado Sestamijorge Rest: 10-Mar-2023 60 Discovery 630 Stress: 10-Mar-2023 30 Discovery 630 0.4mg Lexiscan. Images obtained in supine and prone position. SPECT RESULTS Technical Quality: Excellent Raw Data Analysis: Normal Image Corrections: No attenuation or motion correction applied Summed Stress Score: 1 Summed Rest Score: 2 Summed Difference Score: 1 PERFUSION FINDINGS A small area of slightly decreased tracer uptake was noted in the apical lateral region, with some reversibility, in the supine imaging. No reversible defects were noted with the prone imaging FUNCTIONAL RESULTS (calculated via Gated SPECT) Stress Image LV EF (%): 35 Stress EDV (mL):131 TID: 1.09 Stress ESV (mL):85 FUNCTIONAL FINDINGS: Segmental wall motion analysis revealed diffuse hypokinesia of the left ventricle IMPRESSIONS 1. Myocardial perfusion imaging revealing small area of slightly decreased a very small area of reversible defect in the apical lateral region, suggestive of ischemia in the distribution of the left circumflex artery. However because of the inconsistency with the prone imaging, the reliability is questionable. 2. Diminished LV ejection fraction of 35% 3. LV wall motion analysis revealed diffuse hypokinesia of the left ventricle 4. Mildly dilated LV cavity with end-systolic volume of 85 ml. No similar previous studies are available for comparison Dr Dave Estrada MD [facility] (Electronically Signed) Final Date: 10 March 2023 13:00 S
--- NOTE | 2023-03-10 08:41 | PC.NURSE ---
Patient returns from stress test at 0835.
[2023-03-10] MEDS: metoprolol tartrate 25 mg Tablet 50 MG PO ×2 (08:48→18:14)
[2023-03-10] MEDS: pantoprazole DR 40 mg Tablet PO (08:49)
[2023-03-10] MEDS: apixaban 5 mg Tablet PO ×2 (08:49→19:30)
[2023-03-10] MEDS: aspirin 81 mg EC Tablet PO (08:49)
--- NOTE | 2023-03-10 17:33 | PM.CONSULT ---
Providers/Reason For Consult Consulting Physician/Specialty*: MATT Estrada MD/cardiology Reason for Consult*: Patient with atrial fibrillation, LV dysfunction, abnormal stress test Requesting Physician: Dr. Quintero Attending Physician: Mauro Quintero Primary Care Provider: NANCY Portillo History of Present Illness History of Present Illness Satya Cameron is a 73 year old female with a history of hypertension, recently diagnosed atrial fibrillation, cardiomyopathy and heart failure, he is admitted to the hospital through the emergency room where she presented with complaints of progressive shortness of breath and leg swelling. She was found to have features of congestive heart failure. She was started on IV diuretic. Symptomatically got improved. Today she had a Myocardial perfusion imaging which was found to be abnormal. Cardiology consult is requested for further cardiac evaluation recommendations. This patient has no previous history for coronary disease or myocardial infarction. In October of this year, she presents with complaints of shortness of breath and leg swelling. She was diagnosed with atrial fibrillation for the first time and was started on oral anticoagulation. She was treated with diuretics while being in the hospital. Apparently she did not have any diuretics in the discharge medications. She never had any chest pain. Her shortness of breath is mostly exertional. She may have an element of orthopnea as well. She was getting short of breath even with minimal activities lately. She did not have any fever, chills or any severe cough. No other specific complaints. Since hospital admission, she was started on IV Lasix. She has significant improvement of the symptoms. She underwent a Myocardial perfusion imaging today. She was found to have a small area of inconsistent reversible defect,in the apical lateral region with the supine imaging.No significant reversible defects were noted with the prone imaging. She has a history of hypertension for many years. Apparently she never been treated up until October of this year. Her blood pressure still seems to be remaining uncontrolled. She also was found to have elevated cholesterol during the current hospital admission. Review of Systems Narrative: CONSTITUTIONAL: No fever or chills. EYES: No blurring of vision or other visual disturbances lately. ENT: No hoarseness of voice, auditory disturbances or sore throat. CARDIOVASCULAR: As mentioned above. RESPIRATORY: No significant cough. GASTROINTESTINAL: No hematemesis or melena. GENITOURINARY: No dysuria or hematuria. INTEGUMENTARY: No skin rashes or history of skin cancer. NEURO: No transient ischemic attacks or amaurosis. PSYCHIATRIC: No history of psychosis or major depression. HEMATOLOGIC: No bleeding disorders or significant anemia. ENDOCRINE: No history of polyuria or polydipsia. MUSCULOSKELETAL: No recent joint pain or swelling. ALLERGY/IMMUNOLOGY: As mentioned above. Medications/Allergies Home Medications Medication Instructions Recorded Confirmed Last Taken Type loperamide 2 mg tablet 2 - 4 mg PO QID PRN diarrhea 10/14/22 03/07/23 10/13/22 History management apixaban 5 mg tablet (Eliquis) 5 mg PO BID@0900,2100 #60 tabs 10/24/22 03/07/23 03/07/23 Rx acetaminophen 500 mg tablet 500 - 1,000 mg PO Q6H PRN Pain 03/07/23 03/07/23 Unknown History lisinopril 20 mg tablet 20 mg PO BID 03/07/23 03/07/23 03/07/23 History Allergies Allergy/AdvReac Type Severity Reaction Status Date / Time Sulfa (Sulfonamide Allergy RASH Verified 03/07/23 10:56 Antibiotics) Current Medications Generic Name Dose Route Start Last Admin Trade Name Freq PRN Reason Stop Dose Admin Apixaban 5 mg 03/07/23 21:00 03/10/23 08:49 Apixaban 5 Mg Tablet PO 5 mg BID@0900,2100 BRANDIN Administration Aspirin 81 mg 03/07/23 15:12 03/10/23 08:49 Aspirin 81 Mg Ec Tablet PO 81 mg DAILY BRANDIN Administration Atorvastatin Calcium 40 mg 03/07/23 21:00 03/09/23 20:45 Atorvastatin 40 Mg Tablet PO 40 mg BEDTIME BRANDIN Administration Loperamide HCl 2 mg 03/08/23 01:02 03/08/23 02:19 Loperamide 2 Mg Capsule PO 2 mg QID PRN Administration DIARRHEA Metoprolol Tartrate 50 mg 03/08/23 18:00 03/10/23 08:48 Metoprolol Tartrate 25 Mg Tablet PO 50 mg Q12H BRANDIN Administration Pantoprazole Sodium 40 mg 03/08/23 09:00 03/10/23 08:[address] 40 Mg Tablet PO 40 mg DAILY BRANDIN Administration PFSH Acute PFSH: Medical History 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, takes antidiarrheal regularly History of thyroiditis in 1980s, on medication for a while; thyroid function later normalized Hypertension Urolithiasis right proximal ureteral stone 5mm in 12/2021 (passed with conservative management) along with other stones noted; q2 year KUBs recommended by urology, follows dietary modification for stone risk reduction Surgical History History of appendectomy History of oophorectomy left History of rectal surgery at age 12 years 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 to difficulty stooling; now with chronic loose stools Family History Mother , AT AGE 87 Lung disease COPD Rheumatoid arthritis Heart failure Father , AT AGE 43 Alcohol abuse Heart attack presumptive diagnosis as had sudden episode Brother Smoker Social History Smoking and tobacco status: never smoked Alcohol intake: never Household members: none Marital status: Current occupational status: employed Current occupation: [employer] Pets and animals: Yes Pets & animals: cat(s) Vitals/I&O/Wt Last Vital Signs Temp 98.0 F 03/10/23 16:00 Pulse 96 03/10/23 16:00 Resp 27 H 03/10/23 16:00 BP 140/113 03/10/23 16:00 Pulse Ox 92 03/10/23 16:00 O2 Del Method Room Air 03/10/23 16:00 O2 Flow Rate 1 03/10/23 04:00 03/10/23 03/10/23 03/10/23 06:59 14:59 22:59 Intake Total 360 / 360 Output Total 1850 / 5450 1600 / 1600 Balance -1850 / -4530 -1240 / -1240 Physical Exam Narrative: GENERAL: The patient is alert and oriented times three. Not in any acute distress. Moderately obese HEENT: No significant pallor, icterus or lymphadenopathy.Oral cavity: There are no mucous membrane lesions. NECK: Trachea appears to be central. No masses noted. No JVD or thyromegaly appreciated. RESPIRATORY: Chest is symmetrical. No intercostals muscle retraction or any accessory muscle activation. There is no chest wall tenderness. Breath sounds are heard bilaterally. No rales or rhonchi heard. No evidence of any consolidation. BREASTS: Deferred. HEART: The heart sounds are normal. No S3 or S4. No significant murmurs. No pericardial rub ABDOMEN: No vessel pulsations or distention. No tenderness. No organomegaly appreciated. Bowel sounds are normally heard. : Deferred. RECTAL: Deferred. LYMPHATIC: No lymphadenopathy noted in the neck. EXTREMITIES: 1-2+ edema both lower extremities. The peripheral pulses are felt in good volume and amplitude MUSCULOSKELETAL: No acute joint deformities or swelling SKIN: There are no significant rashes or ecchymosis NEUROPSYCHIATRIC: The patient is alert and oriented x3. Appears to be in a good mood. No tremors or rigidity noted. Urinary Catheter Management: Carrington: Cath Placed During This Visit: yes Reason for Continuing Indwelling Catheter: Accurate Measurement of Urinary Output in Critically Ill Patients Urinary Catheter Date of Insertion: 03/07/23 Urinary Catheter Time of Insertion: 16:50 Data 03/10/23 06:04 03/10/23 06:04 Other Labs: Laboratory Last Values WBC 11.97 10^3/uL (3.29-11.43) H 03/10/23 06:04 RBC 5.40 10^6/uL (3.85-5.65) 03/10/23 06:04 Hgb 15.40 g/dL (11.27-16.99) 03/10/23 06:04 Hct 49.7 % (36-47) H 03/10/23 06:04 MCV 92.0 fl (85-98) 03/10/23 06:04 MCH 28.5 pg (27-33) 03/10/23 06:04 MCHC 31.0 g/dL (30-55) 03/10/23 06:04 RDW 13.8 % (12.1-15.1) 03/10/23 06:04 Plt Count 328 10^3/cmm (157-399) 03/10/23 06:04 MPV 12.3 fL (7.4-10.4) H 03/10/23 06:04 Neut % (Auto) 58.6 % 03/10/23 06:04 Lymph % (Auto) 32.4 % 03/10/23 06:04 [place] % (Auto) 5.4 % 03/10/23 06:04 Eos % (Auto) 2.3 % 03/10/23 06:04 Baso % (Auto) 0.9 % 03/10/23 06:04 Neut # (Auto) 7.01 10^3/uL (1.8-7.7) 03/10/23 06:04 Lymph # (Auto) 3.9 10^3/uL (0.8-4.8) 03/10/23 06:04 [place] # (Auto) 0.7 10^3/uL (0.2-0.9) 03/10/23 06:04 Eos # (Auto) 0.3 10^3/uL (0.0-0.8) 03/10/23 06:04 Baso # (Auto) 0.1 10^3/uL (0.0-0.1) 03/10/23 06:04 Nucleated RBC % (auto) 0 % 03/10/23 06:04 Nucleated RBCs # 0.0 /100WBC 03/10/23 06:04 Sodium 142 mmol/L (136-145) 03/10/23 06:04 Potassium 4.3 mmol/L (3.5-5.1) 03/10/23 06:04 Chloride 95 mmol/L (98-107) L 03/10/23 06:04 Carbon Dioxide 37 mmol/L (22-29) H 03/10/23 06:04 Anion Gap 14.3 (5-19) 03/10/23 06:04 BUN 19 mg/dL (8-23) 03/10/23 06:04 Creatinine 0.7 mg/dL (0.5-0.9) 03/10/23 06:04 GFR Calculation Not Reportable 03/10/23 06:04 Glucose 101 mg/dL (65-115) 03/10/23 06:04 Estimat Average Glucose 123 03/07/23 10:50 Hemoglobin A1c 5.9 % (4.0-6.0) 03/07/23 10:50 Calculated Osmolality 296 mOsm/kg (285-295) H 03/10/23 06:04 Calcium 10.1 mg/dL (8.5-10.5) 03/10/23 06:04 Magnesium 2.1 mg/dL (1.7-2.3) 03/07/23 13:53 Troponin T Baseline 13 ng/L (0-10) H 03/07/23 13:53 Troponin T 120 Minute 13.90 ng/L (0-10) H 03/07/23 16:05 Delta Troponin T 0.90 ABS# (0-10) 03/07/23 16:05 Troponin T Hi Sens 6Hr 15.27 ng/L (0-10) H 03/07/23 19:37 Troponin T Hi Sens 6Hr Delta 2.27 ng/L (0-12) 03/07/23 19:37 C-Reactive Protein 8.3 mg/L (0.0-4.9) H 03/07/23 13:53 NT-Pro-B Natriuret Pep 2045 pg/mL (0-125) H 03/08/23 03:07 Triglycerides 120 mg/dL (0-150) 03/07/23 10:50 Cholesterol 211 mg/dL (0-200) H 03/07/23 10:50 LDL Cholesterol, Calc 135 mg/dL (50-129) H 03/07/23 10:50 HDL Cholesterol 52 mg/dL (60-100) L 03/07/23 10:50 LDL/HDL Ratio 2.60 RATIO (0.00-3.22) 03/07/23 10:50 Cholesterol/HDL Ratio 4.06 mg/dL (0.0-4.40) 03/07/23 10:50 Procalcitonin 0.04 ng/mL (0-0.5) 03/07/23 13:53 TSH 1.98 uIU/mL (0.27-4.20) 03/07/23 13:53 Urine Color Yellow (Yellow) 03/07/23 16:05 Urine Appearance Clear (CLEAR) 03/07/23 16:05 Urine pH 7 (5-7) 03/07/23 16:05 Ur Specific [place] 1.005 (1.005-1.030) 03/07/23 16:05 Urine Protein Neg (Negative) 03/07/23 16:05 Urine Glucose (UA) Norm (Normal) 03/07/23 16:05 Urine Ketones Negative (Negative) 03/07/23 16:05 Urine Blood Neg (Negative) 03/07/23 16:05 Urine Nitrate Negative (Negative) 03/07/23 16:05 Urine Bilirubin Neg (Negative) 03/07/23 16:05 Urine Urobilinogen Norm mg/dL (Negative) 03/07/23 16:05 Ur Leukocyte Esterase Negative (Negative) 03/07/23 16:05 Myocardial perfusion imaging: My impression: 1.? Myocardial perfusion imaging revealing small area of slightly decreased a ?very small area of reversible defect in the apical lateral region, suggestive ?of ischemia in the distribution of the left circumflex artery.? However because ?of the inconsistency with the prone imaging, the reliability is questionable. ?2.? Diminished LV ejection fraction of 35% ?3.? LV wall motion analysis revealed diffuse hypokinesia of the left ventricle ?4.? Mildly dilated LV cavity with end-systolic volume of 85 ml. ?No similar previous studies are available for comparison Echo: My impression: ?Technically limited quality echocardiogram because of poor ?ultrasonic windows. ?Grossly LV systolic function is moderately reduced- 43% by MOD. ?Left atrial dilation ?Mild mitral regurgitation ?Mild tricuspid regurgitation ?Trace pericardial effusion ?Accurate comparison with prior echocardiogram from 10/2022 not ?possible because of limited visualization EKG 1: My Interpretation: Atrial fibrillation with a controlled ventricular response rate of 84 bpm. Poor R wave progression. Diffuse nonspecific T wave changes. A&P Assessment and plan (1) Abnormal nuclear cardiac imaging test: Most likely the reversible defect is artifactual. The features are suggesting a nonischemic form of cardiomyopathy. Possible related to the arrhythmia. (2) Nonischemic congestive cardiomyopathy: This patient may benefit from Entresto. Since she is on lisinopril, I may discontinue the lisinopril at this time. We will start her on losartan. I also may start her on an SGLT2 inhibitor namely Jardiance 10 mg p.o. daily. (3) CHF (congestive heart failure): Patient may be carefully treated with diuretics. I also may start her on spironolactone 25 mg p.o. daily. (4) Benign essential hypertension with target blood pressure below 140/90: The antihypertensive medications need to be optimized. I will discontinue the lisinopril and start her on losartan 50 mg p.o. daily. (5) Dyslipidemia: Patient may be started on Lipitor 40 mg p.o. daily. May do a lipid profile liver profile in 2 months. Plan He is a patient continues to remain stable, with the new medications, may be discharged home tomorrow. Thank you for the opportunity to evaluate this patient make these recommendations Consult Attestations Medical Necessity Statement: Patient requires continued hospital stay for close monitoring and further management Coding Level of Care Code 17759 Diagnoses Abnormal nuclear cardiac imaging test R93.1 Nonischemic congestive cardiomyopathy I42.0 CHF (congestive heart failure) I50.9 Benign essential hypertension with target blood pressure below 140/90 I10 Dyslipidemia E78.5
[2023-03-10] MEDS: losartan 50 mg Tablet 25 MG PO (19:30)
[2023-03-10] MEDS: spironolactone 25 mg Tablet PO (19:33)
[2023-03-10] MEDS: atorvastatin 40 mg Tablet PO (19:33)
--- NOTE | 2023-03-10 20:11 | P.PN_ITS ---
Subjective Subjective: She reports she is doing well after the stress test. Did not have any chest pain or pressure during the procedure. Has ambulated afterward. Vitals/I&O/Wt Last Vital Signs Temp 98.6 F 03/10/23 19:55 Pulse 79 03/10/23 19:55 Resp 19 H 03/10/23 19:55 BP 115/68 03/10/23 19:55 Pulse Ox 9 L 03/10/23 19:55 O2 Del Method Nasal Cannula 03/10/23 19:55 O2 Flow Rate 4 03/10/23 19:55 03/10/23 03/10/23 03/10/23 06:59 14:59 22:59 Intake Total 360 / 360 118 / 478 Output Total 1850 / 5450 1600 / 1600 1000 / 2600 Balance -1850 / -4530 -1240 / -1240 -882 / -2122 Physical Exam Const: COMMON NORMALS: patient oriented x3 and alert GENERAL APPEARANCE: cooperative ORIENTATION/CONSCIOUSNESS: Yes awake HENMT: COMMON NORMALS: oropharynx normal Neck/C-Spine: COMMON NORMALS: no JVD Resp: COMMON NORMALS: normal respiratory effort and clear to auscultation bilaterally AUSCULTATION: clear to auscultation bilaterally Cardio: COMMON NORMALS: no JVD, regular rhythm, S1 normal heart sound present, S2 normal heart sound present and No murmurs present (Cardio) RHYTHM: regular rhythm HEART SOUNDS: S1 normal heart sound present and S2 normal heart sound present GI: COMMON NORMALS: Normal to inspection, nondistended, normoactive bowel sounds present, Soft to palpation and non-tender PALPATION: Yes Soft to palpation Extremity: COMMON NORMALS: no joint enlargement and no pedal edema Neuro: COMMON NORMALS: patient oriented x3 and moves all extremities SENSORIUM/ORIENTATION: Yes alert Skin: COMMON NORMALS: no rashes or lesions noted GENERAL SKIN EXAM: no rashes or lesions noted Urinary Catheter Management: Carrington: Cath Placed During This Visit: yes Reason for Continuing Indwelling Catheter: Accurate Measurement of Urinary Output in Critically Ill Patients Urinary Catheter Date of Insertion: 03/07/23 Urinary Catheter Time of Insertion: 16:50 Data 03/10/23 06:04 03/10/23 06:04 A&P Assessment and plan (1) Atrial fibrillation with RVR: (2) Systolic CHF, acute on chronic: (3) Chest pain: (4) BMI 40.0-44.9, adult: Plan A-fib with RVR Reviewed heart rate, noted better controlled. Rates remain mostly in 80s. Continues on metoprolol. -Continue Eliquis Monitor on telemetry. Reviewed chemistry, potassium, renal function. Recheck BMP. Atypical chest discomfort, describes epigastric discomfort: Status post stress test today, noted without major ischemia but abnormal test, apical small reversible defect in territory of LCx. Discussed with her, discussed with cardiology, requested consultation given abnormal stress test, CHF decompensation, will EF which appears to be possibly lower than before 35%, A-fib with RVR episodes. Reviewed blood counts, noted mild leukocytosis 11.9, but denies any respiratory symptoms. Reviewed chest x-ray. Hazy lung density with pulmonary venous akua estion suspected secondary to CHF. Reassess blood counts. Symptoms. Systolic CHF exacerbation Diuresing well, -2.7 L / 24 hours. Continue diuretic. Will need diuretic at discharge as well. Continues on 4 L nasal cannula oxygen. Continue support, wean down as tolerating. Discussed with cardiology, appreciate cardiac optimization. -Fluid restrictions 1000 cc -Monitor I&O with Carrington catheter -Monitor creatinine monitor urine output Morbid obesity Full code Eliquis for DVT prophylaxis Attestations Medical Necessity Statement*: Continue hospitalization for optimization of treatment of decompensated CHF, optimization of control of A-fib with RVR, additional cardiac assessment given abnormal stress test with suspected underlying CAD in LCx territory. Diagnoses Atrial fibrillation with RVR I48.91 Systolic CHF, acute on chronic I50.23 Chest pain R07.9 BMI 40.0-44.9, adult Z68.41
[2023-03-11] VITALS (25 sets, daily range): BP systolic 113–158; BP diastolic 70–82; PULSE 56–101; RESP 8–27; TEMP 36.6–37.6; O2SAT 90–97
[2023-03-11 04:49] LABS: Basophils # 0.1 10^3/uL (0.0-0.1); Basophils % 0.8 %; Eosinophils # 0.3 10^3/uL (0.0-0.8); Eosinophils % 2.4 %; Hematocrit 42.4 % (36-47); Lymphocytes # 3.1 10^3/uL (0.8-4.8); Lymphocytes % 28.6 %; Mean Corpuscular HGB Conc 31.1 g/dL (30-55); Mean Corpuscular Hemoglobin 28.6 pg (27-33); Mean Corpuscular Volume 91.8 fl (85-98); Mean Platelet Volume 12.1 fL (7.4-10.4); Monocytes # 0.6 10^3/uL (0.2-0.9); Monocytes % 5.3 %; Neutrophils % 62.6 %; Nucleated Red Blood Cells % 0 %; Platelet Count 285 10^3/cmm (157-399); Red Blood Count 4.62 10^6/uL (3.85-5.65); Red Cell Distribution Width 13.6 % (12.1-15.1); White Blood Count 10.71 10^3/uL (3.29-11.43)
[2023-03-11 05:15] LABS: Magnesium 2.1 mg/dL (1.7-2.3)
[2023-03-11 05:18] LABS: Anion Gap 14.2 (5-19); Blood Urea Nitrogen 25 mg/dL (8-23); Calcium 9.2 mg/dL (8.5-10.5); Carbon Dioxide 35 mmol/L (22-29); Chloride 96 mmol/L (98-107); Glucose 110 mg/dL (65-115); Osmolality Calculated 297 mOsm/kg (285-295); Potassium 4.2 mmol/L (3.5-5.1); Sodium 141 mmol/L (136-145)
[2023-03-11] MEDS: metoprolol tartrate 25 mg Tablet 50 MG PO (05:30)
[2023-03-11] MEDS: spironolactone 25 mg Tablet PO (08:56)
[2023-03-11] MEDS: pantoprazole DR 40 mg Tablet PO (08:56)
[2023-03-11] MEDS: apixaban 5 mg Tablet PO (08:56)
[2023-03-11] MEDS: losartan 50 mg Tablet 25 MG PO (08:56)
--- NOTE | 2023-03-11 10:09 | P.DS_ITS ---
Discharge Providers Date of Admission: 03/07/23 13:59 Date of Discharge: March 11, 2023 Attending Provider at Admission: Tato Hernandez MD Attending Provider at Discharge: Mauro Quintero Primary Care Provider: NANCY Portillo Diagnoses at Discharge Discharge Diagnosis (1) Atrial fibrillation with RVR: Status: Acute (2) Systolic CHF, acute on chronic: Status: Acute (3) Chest pain: Status: Acute (4) BMI 40.0-44.9, adult: Status: Acute Reason for Visit Reason for Visit: phys sent, afib, sob Hospital Course Hospital Course Pleasant 73-year-old lady with history of atrial fibrillation, cardiomyopathy, suspected tachycardia induced, previously ejection fraction 43%, presented with atrial fibrillation with RVR, congestive heart failure, atypical chest discomfort. Received treatment with Cardizem drip, switch to oral metoprolol 50 mg twice daily. Continues on Eliquis. Treated with IV Lasix for decompensated systolic and diastolic CHF. Troponin series not suggestive of acute [place], moderately reduced ejection fraction on technically poor echocardiogram, underwent assessment by stress testing which showed reversible small apical defect in LCx territory, with suspicion of underlying CAD, decompensated CHF, A- fib with RVR episodes, was assessed by cardiology with recommendations for continued medical management, optimized with addition of atorvastatin, switch to losartan with plans for Entresto which she has requested for discharge, but she states if she cannot afford it may have to go back to lisinopril, with initiation of as well as spironolactone discussed with her going back to 10 mg of lisinopril if she cannot obtain Entresto. She understands not to take both at the same time. Additionally she is to start on Jardiance. Continue metoprolol. Her heart rate remains controlled in the 80s. Volume status has improved. She denies any dyspnea. At rest saturation low 90s on room air. For now continues on 20 mg Lasix, please reassess volume status. Please reassess atrial fibrillation heart rate controlled which will be important to prevent further worsening of cardiomyopathy. Target heart rate less than 110. Target blood pressure less than 140/90. Continue to optimize cardiovascular risks. Consider option for weight loss. She is asked to also follow-up with cardiology. Home oxygen evaluation is requested prior to discharge. Physical Exam Const: COMMON NORMALS: patient oriented x3 and alert GENERAL APPEARANCE: cooperative ORIENTATION/CONSCIOUSNESS: Yes awake HENMT: COMMON NORMALS: oropharynx normal Neck/C-Spine: COMMON NORMALS: no JVD Resp: COMMON NORMALS: normal respiratory effort and clear to auscultation bilaterally AUSCULTATION: clear to auscultation bilaterally Cardio: COMMON NORMALS: no JVD, regular rhythm, S1 normal heart sound present, S2 normal heart sound present and No murmurs present (Cardio) RHYTHM: regular rhythm HEART SOUNDS: S1 normal heart sound present and S2 normal heart sound present GI: COMMON NORMALS: Normal to inspection, nondistended, normoactive bowel sounds present, Soft to palpation and non-tender PALPATION: Yes Soft to palpation Extremity: COMMON NORMALS: no joint enlargement GENERAL: Yes edema (trace) Neuro: COMMON NORMALS: patient oriented x3 and moves all extremities SENSORIUM/ORIENTATION: Yes alert Skin: COMMON NORMALS: no rashes or lesions noted GENERAL SKIN EXAM: no rashes or lesions noted Urinary Catheter Management: Carrington: Cath Placed During This Visit: yes Reason for Continuing Indwelling Catheter: Accurate Measurement of Urinary Output in Critically Ill Patients Urinary Catheter Date of Insertion: 03/07/23 Urinary Catheter Time of Insertion: 16:50 Discharge Data Studies Completed and Pending Completed Studies During Hospitalization Category Date Time Status Sestamibi Stress Test Request Routine Exams 03/09/23 08:41 Draft XR chest 1V portable [id number] Stat Exams 03/07/23 10:44 Completed NM kenia perf SPECT r/s* [id number] Routine Nuc Med 03/10/23 08:41 Completed CV. echo complete* [id number] Stat Ultrasound 03/07/23 14:33 Completed Pending at discharge Category Date Time Status Basic Metabolic Panel AM LABS Lab 03/12/23 04:00 Ordered Basic Metabolic Panel AM LABS Lab 03/13/23 04:00 Ordered Complete Blood Count w/Auto AM LABS Lab 03/12/23 04:00 Ordered Complete Blood Count w/Auto AM LABS Lab 03/13/23 04:00 Ordered Laboratory Results WBC 10.71 10^3/uL (3.29-11.43) 03/11/23 04:33 RBC 4.62 10^6/uL (3.85-5.65) 03/11/23 04:33 Hgb 13.20 g/dL (11.27-16.99) 03/11/23 04:33 Hct 42.4 % (36-47) 03/11/23 04:33 MCV 91.8 fl (85-98) 03/11/23 04:33 MCH 28.6 pg (27-33) 03/11/23 04:33 MCHC 31.1 g/dL (30-55) 03/11/23 04:33 RDW 13.6 % (12.1-15.1) 03/11/23 04:33 Plt Count 285 10^3/cmm (157-399) 03/11/23 04:33 MPV 12.1 fL (7.4-10.4) H 03/11/23 04:33 Neut % (Auto) 62.6 % 03/11/23 04:33 Lymph % (Auto) 28.6 % 03/11/23 04:33 [place] % (Auto) 5.3 % 03/11/23 04:33 Eos % (Auto) 2.4 % 03/11/23 04:33 Baso % (Auto) 0.8 % 03/11/23 04:33 Neut # (Auto) 6.70 10^3/uL (1.8-7.7) 03/11/23 04:33 Lymph # (Auto) 3.1 10^3/uL (0.8-4.8) 03/11/23 04:33 [place] # (Auto) 0.6 10^3/uL (0.2-0.9) 03/11/23 04:33 Eos # (Auto) 0.3 10^3/uL (0.0-0.8) 03/11/23 04:33 Baso # (Auto) 0.1 10^3/uL (0.0-0.1) 03/11/23 04:33 Nucleated RBC % (auto) 0 % 03/11/23 04:33 Nucleated RBCs # 0.0 /100WBC 03/11/23 04:33 Sodium 141 mmol/L (136-145) 03/11/23 04:33 Potassium 4.2 mmol/L (3.5-5.1) 03/11/23 04:33 Chloride 96 mmol/L (98-107) L 03/11/23 04:33 Carbon Dioxide 35 mmol/L (22-29) H 03/11/23 04:33 Anion Gap 14.2 (5-19) 03/11/23 04:33 BUN 25 mg/dL (8-23) H 03/11/23 04:33 Creatinine 1.0 mg/dL (0.5-0.9) H 03/11/23 04:33 GFR Calculation Not Reportable 03/11/23 04:33 Glucose 110 mg/dL (65-115) 03/11/23 04:33 Estimat Average Glucose 123 03/07/23 10:50 Hemoglobin A1c 5.9 % (4.0-6.0) 03/07/23 10:50 Calculated Osmolality 297 mOsm/kg (285-295) H 03/11/23 04:33 Calcium 9.2 mg/dL (8.5-10.5) 03/11/23 04:33 Magnesium 2.1 mg/dL (1.7-2.3) 03/11/23 04:33 Troponin T Baseline 13 ng/L (0-10) H 03/07/23 13:53 Troponin T 120 Minute 13.90 ng/L (0-10) H 03/07/23 16:05 Delta Troponin T 0.90 ABS# (0-10) 03/07/23 16:05 Troponin T Hi Sens 6Hr 15.27 ng/L (0-10) H 03/07/23 19:37 Troponin T Hi Sens 6Hr Delta 2.27 ng/L (0-12) 03/07/23 19:37 C-Reactive Protein 8.3 mg/L (0.0-4.9) H 03/07/23 13:53 NT-Pro-B Natriuret Pep 2045 pg/mL (0-125) H 03/08/23 03:07 Triglycerides 120 mg/dL (0-150) 03/07/23 10:50 Cholesterol 211 mg/dL (0-200) H 03/07/23 10:50 LDL Cholesterol, Calc 135 mg/dL (50-129) H 03/07/23 10:50 HDL Cholesterol 52 mg/dL (60-100) L 03/07/23 10:50 LDL/HDL Ratio 2.60 RATIO (0.00-3.22) 03/07/23 10:50 Cholesterol/HDL Ratio 4.06 mg/dL (0.0-4.40) 03/07/23 10:50 Procalcitonin 0.04 ng/mL (0-0.5) 03/07/23 13:53 TSH 1.98 uIU/mL (0.27-4.20) 03/07/23 13:53 Urine Color Yellow (Yellow) 03/07/23 16:05 Urine Appearance Clear (CLEAR) 03/07/23 16:05 Urine pH 7 (5-7) 03/07/23 16:05 Ur Specific [place] 1.005 (1.005-1.030) 03/07/23 16:05 Urine Protein Neg (Negative) 03/07/23 16:05 Urine Glucose (UA) Norm (Normal) 03/07/23 16:05 Urine Ketones Negative (Negative) 03/07/23 16:05 Urine Blood Neg (Negative) 03/07/23 16:05 Urine Nitrate Negative (Negative) 03/07/23 16:05 Urine Bilirubin Neg (Negative) 03/07/23 16:05 Urine Urobilinogen Norm mg/dL (Negative) 03/07/23 16:05 Ur Leukocyte Esterase Negative (Negative) 03/07/23 16:05 Vitals Last Vital Signs Temp 98.3 F 03/11/23 08:00 Pulse 67 03/11/23 08:00 Resp 27 H 03/11/23 08:00 BP 113/70 03/11/23 08:56 Pulse Ox 92 03/11/23 08:00 O2 Del Method Nasal Cannula 03/11/23 07:47 O2 Flow Rate 1 03/11/23 07:47 Discharge Plan Discharge Patient Disposition: Home Condition: Stable Prescriptions: New metoprolol tartrate 25 mg Tablet 50 mg PO Q12H Qty: 180 0RF spironolactone 25 mg Tablet 25 mg PO DAILY Qty: 90 0RF furosemide [Lasix] 20 mg tablet 20 mg PO DAILY Qty: 90 0RF atorvastatin 40 mg Tablet 40 mg PO BEDTIME Qty: 90 0RF Entresto 24-26 mg tablet 1 tab PO BID Qty: 180 0RF Jardiance 10 mg tablet 10 mg PO DAILY Qty: 90 0RF Continued Eliquis 5 mg tablet 5 mg PO BID@0900,2100 Qty: 60 5RF Tylenol Ex Str Rapid Release 500 mg Tablet 500 - 1,000 mg PO Q6H PRN (Reason: Pain) loperamide 2 mg Tablet 2 - 4 mg PO QID PRN (Reason: diarrhea management) Discontinued lisinopril 20 mg tablet 20 mg PO BID Rx Instructions: Increasing dose Discharge Orders: Discharge Order (Routine); Ordered 03/11/23 Ordered By: Mauro Quintero Referrals: Ashlee Velasquez FNP [Primary Care Provider] - 03/17/23 10:00 am Haley Herrera FNP [Nurse Practitioner] - 1 week (AFib RVR, CHF) Discharge Diet: Cardiac Discharge Activity: Increase activity as tolerated Patient Instructions: Metoprolol (By mouth) (Lopressor, Toprol XL), Spironolactone (By mouth), Furosemide (By mouth), Atorvastatin (By mouth), Empagliflozin (By mouth), Sacubitril/Valsartan (By mouth), Heart Failure (DC), A-fib (Atrial Fibrillation) (DC), Prevent Cardiovascular Disease (GEN), CHF Stoplight, Chest Pain Stoplight, Opioid Safety Activity Restrictions/Additional Instructions: Check your heart rate and blood pressure 3 times daily at home, write down sivakumar mata to bring to her appointment. Target heart rate is less than 110 bpm at rest. Target blood pressure below 140/90. Hold blood pressure medication Entresto, spironolactone in case of blood pressure is low as discussed. Follow-up with your primary doctor and cardiology for reassessment of atrial fibrillation, congestive heart failure, cardiomyopathy (decreased ejection fraction). Suspected coronary disease. Continue to work with your primary provider and animal trapper to optimize cardiovascular risk factors. Discharge Attestations Time Spent in Discharge Care*: greater than 30 min Quality Metrics Clinical Quality Measures [ No reported AMI, CVA or VTE this stay] Coding Level of Care Code 96514 Total time (in minutes) for Discharge: 40 Diagnoses Atrial fibrillation with RVR I48.91 Systolic CHF, acute on chronic I50.23 Chest pain R07.9 BMI 40.0-44.9, adult Z68.41
--- NOTE | 2023-03-11 12:44 | PM.PN ---
Subjective Subjective: The patient is feeling okay. She is tolerating the medications well. Apparently she cannot afford Entresto. So it was decided to put her back on the lisinopril. No chest pain or shortness of breath. Vital signs remained stable. Medications: Medication Review Details: Current Medications Acetaminophen (Acetaminophen 325 Mg Tablet) 650 mg PO Q6H PRN PRN Reason: Mild/Mod Pain Or Temp >/= 101 Albuterol/Ipratropium (Ipratropium-Albuterol 3 Ml Neb) 3 ml INHALATION Q6H PRN PRN Reason: SHORTNESS OF BREATH Apixaban (Apixaban 5 Mg Tablet) 5 mg PO BID@0900,2100 FORMERLY [facility], [facility]–1983 Last Admin: 03/11/23 08:56 Dose: 5 mg Atorvastatin Calcium (Atorvastatin 40 Mg Tablet) 40 mg PO BEDTIME FORMERLY [facility], [facility] Last Admin: 03/10/23 19:33 Dose: 40 mg Loperamide HCl (Loperamide 2 Mg Capsule) 2 mg PO QID PRN PRN Reason: DIARRHEA Last Admin: 03/08/23 02:19 Dose: 2 mg Losartan Potassium (Losartan 50 Mg Tablet) 25 mg PO DAILY FOR[facility]LY [facility], [facility]1983 Last Admin: 03/11/23 08:56 Dose: 25 mg Metoprolol Tartrate (Metoprolol Tartrate 25 Mg Tablet) 50 mg PO Q12H FOR[facility], [facility]1983 Last Admin: 03/11/23 05:30 Dose: 50 mg Ondansetron HCl (Ondansetron 2 Mg/Ml Sdv 2 Ml) 4 mg IVP Q8H PRN PRN Reason: vomiting, or N/V if npo Ondansetron HCl (Ondansetron 2 Mg/Ml Sdv 2 Ml) 4 mg IVP Q2M PRN PRN Reason: NAUSEA Pantoprazole Sodium (Pantoprazole Dr 40 Mg Tablet) 40 mg PO DAILY FORMERLY [facility], [facility]1983 Last Admin: 03/11/23 08:56 Dose: 40 mg Spironolactone (Spironolactone 25 Mg Tablet) 25 mg PO DAILY FOR[facility]LY [facility] Last Admin: 03/11/23 08:56 Dose: 25 mg Vitals/I&O/Wt Last Vital Signs Temp 99.6 F 03/11/23 12:15 Pulse 82 03/11/23 12:15 Resp 17 03/11/23 12:15 BP 120/82 03/11/23 12:15 Pulse Ox 92 03/11/23 12:15 O2 Del Method Nasal Cannula 03/11/23 07:47 O2 Flow Rate 1 03/11/23 07:47 03/10/23 03/11/23 03/11/23 22:59 06:59 14:59 Intake Total 118 / 478 120 / 120 Output Total 1650 / 3250 490 / 3740 Balance -1532 / -2772 -490 / -3262 120 / 120 Physical Exam Narrative: GENERAL: The patient is alert and oriented times three. Not in any acute distress. Moderately obese HEENT: No significant pallor, icterus or lymphadenopathy.Oral cavity: There are no mucous membrane lesions. NECK: Trachea appears to be central. No masses noted. No JVD or thyromegaly appreciated. RESPIRATORY: Chest is symmetrical. No intercostals muscle retraction or any accessory muscle activation. There is no chest wall tenderness. Breath sounds are heard bilaterally. No rales or rhonchi heard. No evidence of any consolidation. BREASTS: Deferred. HEART: The heart sounds are normal. No S3 or S4. No significant murmurs. No pericardial rub ABDOMEN: No vessel pulsations or distention. No tenderness. No organomegaly appreciated. Bowel sounds are normally heard. : Deferred. RECTAL: Deferred. LYMPHATIC: No lymphadenopathy noted in the neck. EXTREMITIES: Trace to 1+ edema of both lower extremities MUSCULOSKELETAL: No acute joint deformities or swelling SKIN: There are no significant rashes or ecchymosis NEUROPSYCHIATRIC: The patient is alert and oriented x3. Appears to be in a good mood. No tremors or rigidity noted. Urinary Catheter Management: Carrington: Cath Placed During This Visit: yes Reason for Continuing Indwelling Catheter: Accurate Measurement of Urinary Output in Critically Ill Patients Urinary Catheter Date of Insertion: 03/07/23 Urinary Catheter Time of Insertion: 16:50 Data 03/11/23 04:33 03/11/23 04:33 Other Labs: Laboratory Last Values WBC 10.71 10^3/uL (3.29-11.43) 03/11/23 04:33 RBC 4.62 10^6/uL (3.85-5.65) 03/11/23 04:33 Hgb 13.20 g/dL (11.27-16.99) 03/11/23 04:33 Hct 42.4 % (36-47) 03/11/23 04:33 MCV 91.8 fl (85-98) 03/11/23 04:33 MCH 28.6 pg (27-33) 03/11/23 04:33 MCHC 31.1 g/dL (30-55) 03/11/23 04:33 RDW 13.6 % (12.1-15.1) 03/11/23 04:33 Plt Count 285 10^3/cmm (157-399) 03/11/23 04:33 MPV 12.1 fL (7.4-10.4) H 03/11/23 04:33 Neut % (Auto) 62.6 % 03/11/23 04:33 Lymph % (Auto) 28.6 % 03/11/23 04:33 [place] % (Auto) 5.3 % 03/11/23 04:33 Eos % (Auto) 2.4 % 03/11/23 04:33 Baso % (Auto) 0.8 % 03/11/23 04:33 Neut # (Auto) 6.70 10^3/uL (1.8-7.7) 03/11/23 04:33 Lymph # (Auto) 3.1 10^3/uL (0.8-4.8) 03/11/23 04:33 [place] # (Auto) 0.6 10^3/uL (0.2-0.9) 03/11/23 04:33 Eos # (Auto) 0.3 10^3/uL (0.0-0.8) 03/11/23 04:33 Baso # (Auto) 0.1 10^3/uL (0.0-0.1) 03/11/23 04:33 Nucleated RBC % (auto) 0 % 03/11/23 04:33 Nucleated RBCs # 0.0 /100WBC 03/11/23 04:33 Sodium 141 mmol/L (136-145) 03/11/23 04:33 Potassium 4.2 mmol/L (3.5-5.1) 03/11/23 04:33 Chloride 96 mmol/L (98-107) L 03/11/23 04:33 Carbon Dioxide 35 mmol/L (22-29) H 03/11/23 04:33 Anion Gap 14.2 (5-19) 03/11/23 04:33 BUN 25 mg/dL (8-23) H 03/11/23 04:33 Creatinine 1.0 mg/dL (0.5-0.9) H 03/11/23 04:33 GFR Calculation Not Reportable 03/11/23 04:33 Glucose 110 mg/dL (65-115) 03/11/23 04:33 Estimat Average Glucose 123 03/07/23 10:50 Hemoglobin A1c 5.9 % (4.0-6.0) 03/07/23 10:50 Calculated Osmolality 297 mOsm/kg (285-295) H 03/11/23 04:33 Calcium 9.2 mg/dL (8.5-10.5) 03/11/23 04:33 Magnesium 2.1 mg/dL (1.7-2.3) 03/11/23 04:33 Troponin T Baseline 13 ng/L (0-10) H 03/07/23 13:53 Troponin T 120 Minute 13.90 ng/L (0-10) H 03/07/23 16:05 Delta Troponin T 0.90 ABS# (0-10) 03/07/23 16:05 Troponin T Hi Sens 6Hr 15.27 ng/L (0-10) H 03/07/23 19:37 Troponin T Hi Sens 6Hr Delta 2.27 ng/L (0-12) 03/07/23 19:37 C-Reactive Protein 8.3 mg/L (0.0-4.9) H 03/07/23 13:53 NT-Pro-B Natriuret Pep 2045 pg/mL (0-125) H 03/08/23 03:07 Triglycerides 120 mg/dL (0-150) 03/07/23 10:50 Cholesterol 211 mg/dL (0-200) H 03/07/23 10:50 LDL Cholesterol, Calc 135 mg/dL (50-129) H 03/07/23 10:50 HDL Cholesterol 52 mg/dL (60-100) L 03/07/23 10:50 LDL/HDL Ratio 2.60 RATIO (0.00-3.22) 03/07/23 10:50 Cholesterol/HDL Ratio 4.06 mg/dL (0.0-4.40) 03/07/23 10:50 Procalcitonin 0.04 ng/mL (0-0.5) 03/07/23 13:53 TSH 1.98 uIU/mL (0.27-4.20) 03/07/23 13:53 Urine Color Yellow (Yellow) 03/07/23 16:05 Urine Appearance Clear (CLEAR) 03/07/23 16:05 Urine pH 7 (5-7) 03/07/23 16:05 Ur Specific [place] 1.005 (1.005-1.030) 03/07/23 16:05 Urine Protein Neg (Negative) 03/07/23 16:05 Urine Glucose (UA) Norm (Normal) 03/07/23 16:05 Urine Ketones Negative (Negative) 03/07/23 16:05 Urine Blood Neg (Negative) 03/07/23 16:05 Urine Nitrate Negative (Negative) 03/07/23 16:05 Urine Bilirubin Neg (Negative) 03/07/23 16:05 Urine Urobilinogen Norm mg/dL (Negative) 03/07/23 16:05 Ur Leukocyte Esterase Negative (Negative) 03/07/23 16:05 A&P Assessment and plan (1) Abnormal nuclear cardiac imaging test: Most likely the reversible defect is artifactual. The features are suggesting a nonischemic form of cardiomyopathy. Possible related to the arrhythmia. (2) Nonischemic congestive cardiomyopathy: We will continue on the lisinopril and optimize the medication (3) CHF (congestive heart failure): Patient may be continued on the spironolactone. (4) Benign essential hypertension with target blood pressure below 140/90: Need to l optimize the antihypertensive medications. (5) Dyslipidemia: Patient may be started on Lipitor 40 mg p.o. daily. May do a lipid profile liver profile in 2 months. Plan Possible discharge home today. Appointment the [facility] in 1 to 2 weeks to see the nurse practitioner. Appoint with me in the office in 1 month Attestations Medical Necessity Statement*: Disposition as per the primary Coding Level of Care Code 32279 Diagnoses Abnormal nuclear cardiac imaging test R93.1 Nonischemic congestive cardiomyopathy I42.0 CHF (congestive heart failure) I50.9 Benign essential hypertension with target blood pressure below 140/90 I10 Dyslipidemia E78.5
== END 2023-03-11 15:34 | disposition home or self-care (01) | DRG 291 ==
LOC: ER 11:51 → CSU 17:32
PROVIDERS: Admitting Provider Family Medicine; Emergency Provider Family Medicine; PCP Nurse Practitioner Family; Visit Provider Internal Medicine
DX: I11.0 Hypertensive heart disease with heart failure (principal); I50.23 Acute on chronic systolic (congestive) heart failure; I48.20 Chronic atrial fibrillation, unspecified; Z68.41 Body mass index [BMI] 40.0-44.9, adult; R93.1 Abnormal findings on diagnostic imaging of heart and coronary circulation; I42.8 Other cardiomyopathies; E78.5 Hyperlipidemia, unspecified; I07.1 Rheumatic tricuspid insufficiency; E66.01 Morbid (severe) obesity due to excess calories; K52.9 Noninfective gastroenteritis and colitis, unspecified; I25.10 Atherosclerotic heart disease of native coronary artery without angina pectoris; Z79.01 Long term (current) use of anticoagulants
CPT/HCPCS: 36415; 51702; 71045; 78452; 80048; 80061; 81003; 83036; 83735; 83880; 84145; 84443; 84484; 85025; 86140; 93005; 93306; 94664; 94760; 96374; 96375; 96376; 97116; 97161; 97165; 97530; 99285; A9500; J1940; J2785; J3490

== ENCOUNTER → 2023-03-17 11:28 | Outpatient (BNVA) | payer MEDICARE, OTHER, SELFPAY | PROVIDERS: PCP Nurse Practitioner Family; Visit Provider Nurse Practitioner Family | DX: I10 Essential (primary) hypertension (principal); E78.5 Hyperlipidemia, unspecified; I48.91 Unspecified atrial fibrillation; I50.23 Acute on chronic systolic (congestive) heart failure | CPT/HCPCS: 80053 ==

== ENCOUNTER → 2023-03-21 09:00 | Outpatient (BNVA) | payer MEDICARE, OTHER, SELFPAY | PROVIDERS: PCP Nurse Practitioner Family; Visit Provider Nurse Practitioner Family | DX: I11.0 Hypertensive heart disease with heart failure (principal); I50.23 Acute on chronic systolic (congestive) heart failure; I42.0 Dilated cardiomyopathy; I48.91 Unspecified atrial fibrillation; Z79.01 Long term (current) use of anticoagulants | CPT/HCPCS: 99214 ==

== ENCOUNTER → 2023-04-09 09:32 | Outpatient (BNVA) | payer MEDICARE, OTHER, SELFPAY | PROVIDERS: PCP Nurse Practitioner Family; Visit Provider Nurse Practitioner Family | DX: E87.5 Hyperkalemia (principal) | CPT/HCPCS: 80048 ==

== ENCOUNTER → 2023-07-31 11:05 | Outpatient (BNVA) | payer MEDICARE, OTHER, SELFPAY | PROVIDERS: PCP Nurse Practitioner Family; Visit Provider Internal Medicine Cardiovascular Disease | DX: I48.91 Unspecified atrial fibrillation (principal); I11.0 Hypertensive heart disease with heart failure; I50.23 Acute on chronic systolic (congestive) heart failure; I42.0 Dilated cardiomyopathy; E78.5 Hyperlipidemia, unspecified; Z68.41 Body mass index [BMI] 40.0-44.9, adult; Z79.01 Long term (current) use of anticoagulants; Z68.37 Body mass index [BMI] 37.0-37.9, adult | CPT/HCPCS: 99214 ==

== ENCOUNTER → 2023-09-24 16:39 | Outpatient (BNVA) | payer MEDICARE, OTHER, SELFPAY | PROVIDERS: PCP Nurse Practitioner Family; Visit Provider Nurse Practitioner Family | DX: I50.9 Heart failure, unspecified (principal); I48.91 Unspecified atrial fibrillation; R73.9 Hyperglycemia, unspecified; I10 Essential (primary) hypertension; E78.5 Hyperlipidemia, unspecified | CPT/HCPCS: 80053; 80061; 82607; 83036; 84443; 85025 ==

== ENCOUNTER → 2024-02-20 09:17 | Outpatient (BNVA) | payer MEDICARE, OTHER, SELFPAY | PROVIDERS: PCP Nurse Practitioner Family; Visit Provider Internal Medicine Cardiovascular Disease | DX: I48.91 Unspecified atrial fibrillation (principal); I42.0 Dilated cardiomyopathy; I50.23 Acute on chronic systolic (congestive) heart failure | CPT/HCPCS: 99213 ==

== ENCOUNTER → 2024-04-05 10:56 | Outpatient (BNVA) | payer MEDICARE, OTHER, SELFPAY | PROVIDERS: PCP Nurse Practitioner Family; Visit Provider Nurse Practitioner Family | DX: E11.9 Type 2 diabetes mellitus without complications (principal); I48.91 Unspecified atrial fibrillation; E78.5 Hyperlipidemia, unspecified; I50.9 Heart failure, unspecified | CPT/HCPCS: 80053; 80061; 83036; 84443; 85025 ==

== ENCOUNTER → 2024-09-20 15:27 | Outpatient (BNVA) | payer MEDICARE, OTHER, SELFPAY | PROVIDERS: PCP Nurse Practitioner Family; Visit Provider Internal Medicine Cardiovascular Disease | DX: I42.8 Other cardiomyopathies (principal); I48.20 Chronic atrial fibrillation, unspecified; I11.0 Hypertensive heart disease with heart failure; I50.22 Chronic systolic (congestive) heart failure; Z79.01 Long term (current) use of anticoagulants | CPT/HCPCS: 99214 ==

== ENCOUNTER → 2024-11-29 09:05 | Outpatient (BNVA) | payer MEDICARE, OTHER, SELFPAY | PROVIDERS: PCP Nurse Practitioner Family; Visit Provider Nurse Practitioner Family | DX: I10 Essential (primary) hypertension (principal); E11.9 Type 2 diabetes mellitus without complications; R79.89 Other specified abnormal findings of blood chemistry; I48.91 Unspecified atrial fibrillation | CPT/HCPCS: 80053; 80061; 83036; 84443; 85025 ==

== ENCOUNTER → 2025-04-06 13:51 | Outpatient (BNVA) | payer MEDICARE, OTHER, SELFPAY | PROVIDERS: PCP Nurse Practitioner Family; Visit Provider Internal Medicine Cardiovascular Disease | DX: I48.91 Unspecified atrial fibrillation (principal); I11.0 Hypertensive heart disease with heart failure; I50.9 Heart failure, unspecified; Z79.01 Long term (current) use of anticoagulants | CPT/HCPCS: 99214 ==